=== PATIENT | female | born 1960 | race Caucasian/White ===

== ENCOUNTER 2017-12-12 17:55 | Inpatient (IN) ==
[~2017-12-12 17:55] MED LIST: Aminoglycoside Consult 1 EACH MC ONE
[2017-12-12] MEDS ORDERED: Albuterol 2.5 MG/3 ML NEBULIZER IH PRN (21:24)
[2017-12-12] MEDS ORDERED: Naloxone 0.4 MG/ML INJ IVP PRN (21:24)
[2017-12-12] MEDS ORDERED: Acetaminophen 325 MG TABLET PO PRN (21:24)
[2017-12-12] MEDS ORDERED: 0.9 % Sodium Chloride 1,000 ML IVC SCH (21:30)
--- NOTE | 2017-12-12 21:44 | Internal Med History&Physical ---
Date of Encounter: 12/12/17 Time of Encounter: 21:00 Internal Medicine - H&P: HPI Chief complaint: SOB; fever; cough Admitted From: Hospital to Hospital Transfer Plans for Post Hospital Care: Home History of present illness: Ms. Antoine is a 57 year old female who presents in transfer from [facility] ER in [facility]. She was in [place] today visiting her auto painter helper and she was referred emergently to the ER due to her dyspnea, coughing, and hypoxemia. Due to her opiate addiction, she was started on Suboxone and was having a one-week follow-up today. Her auto painter helper noted her respiratory distress and recommended ER transfer right away. She was therefore seen in the ER there in [place] and was documented to have evidence of clinical pneumonia with sepsis and acute hypoxemic respiratory failure. She was stabilized and initiated on antibiotics. Due to the fact that she lives in [facility]), she requested transfer to [facility]. Arrangements were made to transfer patient to our facility, and she arrived here this evening. Upon my assessment of the patient, she appears to be in mild to moderate respiratory distress. She admits to coughing, shortness of breath, pleuritic type chest pain, fevers, and chills for last several days. She denies any vomiting or diarrhea. Appetite and fluid intake have been diminished. She denies any known ill contacts. She does have a history of underlying cirrhosis secondary to alcohol abuse. She states her last alcohol intake was roughly 4 years ago. Of note, she had an EGD less than 1 year ago here at [facility] which revealed no evidence of varices. She does have history of Jeffrey-en-Y gastric bypass as noted on EGD and per history. Past Med Surg Social Fam HX - Past Medical History Attestation: Yes The following information was validated with the patient. Source: patient, old records reviewed, other (transfer records) Medical history: arthritis, asthma, cirrhosis, COPD, hypertension Additional medical history: chronic pain, insomnia Psychiatric history: no psych history - Past Surgical History Surgical History: , herniorrhaphy Additional surgical history: gastric bypass - Social History Smoking Status: Current every day smoker Alcohol use: none Drug use: opiates, other (prescribed Suboxone now -- confirmed by [facility]) Current living situation: Home, With Family Activity Level: Independent ambulation Recent Out of Country Travel Within the Last 8 Weeks: No - Family History Mother Living Status: Hx Family Cancer: Yes Father Living Status: Hx Family Cancer: Yes Internal Medicine - H&P: Meds Ipratropium/Albuterol Neb [Duoneb] 3 ml IH Q6HR PRN 06/06/16 [History] Lisinopril [Zestril] 10 mg PO DAILY 06/06/16 [History] Loratadine [Claritin] 10 mg PO DAILY 06/06/16 [History] Albuterol Sulfate [Ventolin Hfa] 2 puff IH Q4H PRN 02/16/17 [History] Bumetanide [Bumex] 1 mg PO DAILY 02/16/17 [History] Ergocalciferol (VITAMIN D2) [Vitamin D2] 50,000 unit PO QWEEK 02/16/17 [History] Lactulose [Enulose] 10 gm PO TID 02/16/17 [History] Trazodone HCl 100 mg PO HS 02/16/17 [History] Spironolactone [Aldactone] 25 mg PO DAILY #14 tab 02/27/17 [Rx] Buprenorphine HCl/Naloxone HCl [Buprenorphin-Naloxon 8-2 mg Sl] 1 tab PO DAILY 12/12/17 [History] Fluticasone Propionate Nasal [Flonase] 50 mcg NS DAILY PRN 12/12/17 [History] 3 Allergy/AdvReac Type Severity Reaction Status Date / Time No Known Allergies Allergy Verified 06/06/16 11:48 - Constitutional Constitutional: chills, fever(s), no night sweats - EENT Eyes: no blurry vision, no change in vision Ears: no ear pain, no tinnitus Nose, mouth and throat: no nasal congestion, no sinus pressure, no sore throat - Cardiovascular Cardiovascular ROS IM: dyspnea, dyspnea on exertion, edema, no chest pain - Respiratory Respiratory: cough, dyspnea, dyspnea on exertion, wheezing, chest congestion, excessive phlegm production, change in phlegm color, no hemoptysis - Gastrointestinal Gastrointestinal: nausea, no abdominal pain, no diarrhea, no hematemesis, no hematochezia, no melena, no vomiting - Genitourinary Genitourinary: no dysuria, no flank pain, no hematuria - Musculoskeletal Musculoskeletal ROS IM: back pain, no arthralgias - Integumentary Integumentary IM: no rash, no jaundice - Neurological Neurological ROS: weakness, no dizziness, no focal weakness, no frequent falls, no headache(s) - Psychiatric Psychiatric: no anxiety, no depression - Endocrine Endocrine IM: no polydipsia, no polyuria - Hematologic/Lymphatic Hematologic/Lymphatic: no lymphadenopathy - Allergic/Immunologic Allergic/Immunologic: wheezing, no GI upset with certain foods - Constitutional General appearance: Present: cooperative, mild distress (coughing, respiratory distress -- mild), A&O X 3, pleasant, answers questions appropriately - Head Head exam: Present: atraumatic, normal inspection - Eye Eye exam: Present: EOMI, PERRL. Absent: scleral icterus Pupils: Present: normal accommodation - ENT ENT exam: Present: mucous membranes dry, normal exam, normal oropharynx - Neck Neck exam general surgery: Present: full ROM, supple. Absent: lymphadenopathy, tenderness, nuchal rigidity, thyromegaly - Respiratory Respiratory exam: Present: accessory muscle use, chest wall tenderness, rales ( both bases, L > R), respiratory distress, rhonchi, tachypnea. Absent: CTAB, wheezes - Cardiovascular Cardiovascular exam: Present: distant heart sounds, RRR, +S1, +S2, tachycardia ( HR 105). Absent: diastolic murmur, systolic murmur - GI/Abdominal GI/Abdominal exam: Present: normal bowel sounds, soft. Absent: guarding, hepatomegaly, mass, rebound, splenomegaly, tenderness - Extremities Exam Extremities exam: Present: full ROM, normal capillary refill, pedal edema (1+ non-pitting edema), warm, radial pulses palpable and symmetrical. Absent: calf tenderness, joint swelling - Back Exam Back exam: Present: normal inspection, tenderness (diffuse back/muscle aches) - Neurological Exam Neurological exam: Present: alert, CN II-XII intact, oriented X3, no focal deficits, strengths equal and symetr throughout - Psychiatric Psychiatric exam: Present: normal affect, normal mood - Skin Skin exam: Present: dry, warm. Absent: rash Internal Med - H&P Results - Labs Labs: I reviewed labs from the ER at [facility] and include the following: Sodium 125 Potassium 3.5 Chloride 89 CO2 25 Glucose 69 BUN 48 Creatinine 1.49 WBC 22 Hemoglobin 11.7 Hematocrit 35.0 Platelets 379 Segmented neutrophils 93% Bands 2% Lactic acid level I.4 CT chest report reveals moderate to large right pleural effusion, diffuse patchy infiltrates throughout the right upper and middle lobes, no pericardial effusion. Unfortunately, images were not sent with the transfer packet -- only paper report. - EKG Data -: EKG Interpreted by Myself EKG shows normal: sinus rhythm Rate: tachycardia - EKG Data Prior EKG available for review: no EKG comments: 12/12/17 22:42 Sinus Tachycardia with no acute changes - Assessment and plan (1) Pneumonia Current Visit: Yes Status: Acute Assessment and plan: 1. Patient received Rocephin and Zithromax at ER in [place]. 2. Will Add Vancomcyin now and continue the other tomorrow. 3. Oxygen, aerosols, and steroids for respiratory support. 4. Blood cultures ordered. 5. Will try to obtain sputum culture. 6. Will image here with PCXR and follow clinically. Qualifiers: Pneumonia type: due to unspecified organism Laterality: bilateral Lung location: unspecified part of lung Qualified Code(s): J18.9 - Pneumonia, unspecified organism (2) Sepsis Current Visit: Yes Status: Acute Assessment and plan: 1. Blood pressure is preserved and initial lactate is normal. 2. Will continue IVF, trend lactate, and obtain cultures as above. 3. Likely source is pneumonia. Qualifiers: Sepsis type: sepsis due to unspecified organism Qualified Code(s): A41.9 - Sepsis, unspecified organism (3) Acute kidney failure Current Visit: Yes Status: Acute Assessment and plan: 1. Hold diuretics. 2. IVF as above. 3. Monitor renal function, I/O. 4. Consult nephrology if renal function does not improve with above measures. Qualifiers: Acute renal failure type: unspecified Qualified Code(s): N17.9 - Acute kidney failure, unspecified (4) Cirrhosis Current Visit: Yes Status: Chronic Assessment and plan: 1. Patient follows with GI here. 2. Last EGD -- no varices. 3. Resume home meds when clinically appropriate. Qualifiers: Hepatic cirrhosis type: alcoholic cirrhosis Ascites presence: unspecified Qualified Code(s): K70.30 - Alcoholic cirrhosis of liver without ascites (5) Opiate addiction Current Visit: Yes Status: Acute Assessment and plan: 1. Patient currently on Suboxone and off other prescribed opiates. 2. [facility] report confirms recent Rx fill of Suboxone. 3. Resume home Suboxone once medication list verified. Qualifiers: Substance use status: in remission Qualified Code(s): F11.21 - Opioid dependence, in remission (6) DVT prophylaxis Current Visit: Yes Status: Acute Assessment and plan: 1. Heparin SQ.
[2017-12-12] MEDS ORDERED: *HR* LORazepam 2 MG/ML VIAL IVP PRN (21:59)
[2017-12-12] MEDS ORDERED: Vancomycin (wt based) 1,000 MG VIAL IVPB SCH (22:00)
[2017-12-12] MEDS: methylPREDNISolone 125 MG/2 ML VIAL IVP SCH (23:39)
[2017-12-12] MEDS: Ipratropium/Albuterol Neb 3 ML IH SCH (23:59)
[2017-12-13 01:19] LABS: Hematocrit 29.8 % (35.3-44.9); Hemoglobin 10.9 g/dL (11.5-15.4); Mean Corpuscular HGB Conc 36.6 g/dL (31.6-35.5); Mean Corpuscular Hemoglobin 34.4 pg (28.0-33.3); Mean Platelet Volume 9.4 fL (9.4-12.4); Platelet Count 316 K/mcL (140-400); Red Blood Count 3.17 M/mcL (3.82-4.97); Red Cell Distribution Width 15.5 % (11.5-14.5)
[2017-12-13 01:26] LABS: INR 1.4; Prothrombin Time 15.1 Seconds (9.4-12.1)
[2017-12-13 01:29] LABS: Activated Partial Thrombo Time 32.9 Seconds (26.0-36.0)
[2017-12-13 01:39] LABS: Albumin/Globulin Ratio 0.6 (1.1-2.2); Bilirubin,Total 0.6 mg/dL (0.3-1.0); Calcium 7.9 mg/dL (8.6-10.3); Globulin 3.2 g/dL (2.4-3.5); Magnesium 1.8 mg/dL (1.6-2.6); Potassium 4.1 mEq/L (3.5-5.1); Total Protein 5.2 g/dL (6.4-8.9)
[2017-12-13 01:43] LABS: Monocytes # 0.2 K/mcL (0.0-1.3); Neutrophils # 15.1 K/mcL (1.6-8.9); Platelet Estimate Normal (Normal)
[2017-12-13] MEDS: Ipratropium/Albuterol Neb 3 ML IH SCH ×6 (03:25→23:42)
[2017-12-13] MEDS: cefTRIAXone 2,000 MG in Water for inj. (sterile) 20 ML 20 ML IVP SCH (05:51)
[2017-12-13] MEDS: Azithromycin 500 MG in D5% in Water 250 ML IVPB SCH (05:51)
[2017-12-13] MEDS: *HR* Heparin 5,000 UNIT/ML VIAL SQ SCH ×2 (05:51→17:37)
[2017-12-13] MEDS: methylPREDNISolone 125 MG/2 ML VIAL IVP SCH ×4 (05:51→23:27)
[2017-12-13] MEDS: Vitamin B Complex/Vit C/Vit E 1 EACH TABLET PO SCH (09:26)
[2017-12-13] MEDS: Thiamine (B-1) 100 MG TABLET PO SCH (09:26)
[2017-12-13] MEDS: Folic Acid 1 MG TABLET PO SCH (09:26)
[2017-12-13] MEDS: (Buprenorphine Hcl/Naloxone Hcl [Buprenorphin-Naloxon) PO SCH (10:26)
--- NOTE | 2017-12-13 12:27 | Internal Med Progress Note ---
Date of Encounter: 12/13/17 Time of Encounter: 12:27 - Assessment and plan (1) Bacteremia due to Gram-positive bacteria Current Visit: Yes Status: Acute Assessment and plan: Per [facility], blood culture with GPC (likely strep) Repeat blood culture from here is pending Will continue Ceftriaxone and Azithromycin Repeat blood culture a/m (2) Pneumonia Current Visit: Yes Status: Acute Assessment and plan: Likely due tp strep, (as strep in blod culture) Continue Ceftriaxone and Azithromycin-Day 2 Continue O2 supplement CXR with pulm edema and or PNA Wean O2 as tolerated Send urinary Ag for legionella due to hyponatremia Qualifiers: Pneumonia type: due to group B Streptococcus Laterality: bilateral Lung location: unspecified part of lung Qualified Code(s): J15.3 - Pneumonia due to streptococcus, group B (3) Sepsis Current Visit: Yes Status: Acute Assessment and plan: Patient with tachycardia, leukocytosis, fever (none here, stated at referring facility), source is GPC bacteremia and PNA Continue antibiotics Repeat blood culture from here is pending Lactate is N Hemodynamically stable Qualifiers: Sepsis type: sepsis due to unspecified organism Qualified Code(s): A41.9 - Sepsis, unspecified organism (4) Acute kidney failure Current Visit: Yes Status: Acute Assessment and plan: Improving Discontinue IVF as patient has pedal edema as well as possible pulm edema Continue to monitor Resume bumex Avoid nephrotoxins Qualifiers: Acute renal failure type: unspecified Qualified Code(s): N17.9 - Acute kidney failure, unspecified (5) Cirrhosis Current Visit: Yes Status: Chronic Assessment and plan: Compensated No varices on EGD No ascites Does have bilateral pleural effusions Qualifiers: Hepatic cirrhosis type: alcoholic cirrhosis Ascites presence: unspecified Qualified Code(s): K70.30 - Alcoholic cirrhosis of liver without ascites (6) DVT prophylaxis Current Visit: Yes Status: Acute Assessment and plan: Continue Heparin SQ. (7) Opiate addiction Current Visit: Yes Status: Chronic Assessment and plan: Resume home dose of suboxone Qualifiers: Substance use status: in remission Qualified Code(s): F11.21 - Opioid dependence, in remission (8) CHF (congestive heart failure) Current Visit: Yes Status: Chronic Assessment and plan: hx of chronic CHFpEF. mild LVDD ECHO from 2017 noted Has trace pedal edema , she also has a hx of cirrhosis CXR shows pulm edema Resume home dose of bumex, continue to monitor Qualifiers: Heart failure type: diastolic Heart failure chronicity: chronic Qualified Code(s): I50.32 - Chronic diastolic (congestive) heart failure (9) Hyponatremia Current Visit: Yes Status: Acute Assessment and plan: Na 127, hypoosmolar REceived IVF boluses Continue to monitor - Time Spent With Patient Total time spent is greater than 50% in coordination of care (as documented) at patient's floor/unit and/or counseling patient: - Subjective Interval history: Seen and examined at the bedside 57 F with opiate dependence, alcoholic liver cirrhosis, COPD, CHFpEF She presented and is admitted for management of sepsis, secondary to PNA, MANAV, Strep bacteremia, acute hypoxic respiratory failure Received a call from Cinthya Garcia that the patient's blood cultures is growing GPC, strep.like She continues to have shortness of breath, she is afebrile She is also requiring 4L of O2, and is not on home O2 at home - Constitutional Vitals: Temp Pulse Resp BP Pulse Ox 97.7 F 102 16 136/84 94 12/13/17 11:00 12/13/17 11:00 12/13/17 11:28 12/13/17 11:00 12/13/17 11:28 General appearance: Present: cooperative, A&O X 3, pleasant, no acute distress, answers questions appropriately - Head Head exam: Present: atraumatic, normocephalic - Eye Eye exam: Present: PERRL, conjuntiva pink, sclera anicteric Pupils: Present: PERRL - Neck Neck exam general surgery: Present: supple, trachea midline. Absent: lymphadenopathy - Respiratory Respiratory exam: Present: rhonchi, tachypnea - Cardiovascular Cardiovascular exam: Present: RRR, +S1, +S2. Absent: diastolic murmur, gallop, rubs, systolic murmur - GI/Abdominal GI/Abdominal exam: Present: normal bowel sounds, soft, no peritoneal signs. Absent: distended, tenderness - Extremities Exam Extremities exam: Present: pedal edema (1+ piting pedal edema) - Neurological Exam Neurological exam: Present: alert, CN II-XII intact, oriented X3, no focal deficits. Absent: pronater drift, facial droop, speech deficit - Skin Skin exam: Present: dry, intact Internal Medicine: Result - Labs CBC & Chem 7: 12/13/17 01:07 12/13/17 01:07 Labs: Short CBC 12/13/17 Range/Units 01:07 WBC 16.2 H (4.3-11.1) K/mcL Hgb 10.9 L (11.5-15.4) g/dL Hct 29.8 L (35.3-44.9) % Plt Count 316 (140-400) K/mcL Neutrophils # 15.1 H (1.6-8.9) K/mcL BMP 12/13/17 01:07 Sodium 127 L Potassium 4.1 Chloride 96 L Carbon Dioxide 22 L BUN 49 H Creatinine 1.20 Glucose 93 Calcium 7.9 L Liver Function 12/13/17 Range/Units 01:07 Total Bilirubin 0.6 (0.3-1.0) mg/dL AST 23 (13-39) Units/L ALT 16 (7-52) Units/L Alkaline Phosphatase 147 H (34-104) Units/L Albumin 2.0 L (3.5-5.7) g/dL - ABG Interpretation ABG results: PT/INR, D-dimer PT 15.1 Seconds (9.4-12.1) H 12/13/17 01:07 - Impressions Impressions Chest X-Ray 12/12/17 21:34 IMPRESSION: Findings could represent pulmonary edema or multifocal pneumonia. Bilateral effusions, worse on the right. D/ / Cj Estrada MD / Cj Estrada MD Interpreting Provider: Cj Estrada MD Consult Discharge Plan - Plan Referrals: Junie Petersen, [employer] [Primary Care Provider] -
[2017-12-13] MEDS: traZODone 50 MG TABLET PO SCH (20:48)
[2017-12-14 00:56] LABS: Enterococcus by PCR Not Detected (Not Detect); Staphylococcus aureus by PCR Not Detected (Not Detect); blaKPC Carbapenem-Resist Gene Not Detected (Not Detect); mecA Methicillin-Resist Gene Not Detected (Not Detect); vanA/B Vancomycin-Resist Genes Not Detected (Not Detect)
[2017-12-14 00:57] LABS: Streptococcus by PCR ***DETECTED*** (Not Detect)
[2017-12-14 00:58] LABS: Acinetobacter baumannii by PCR Not Detected (Not Detect); Candida albicans by PCR Not Detected (Not Detect); Candida glabrata by PCR Not Detected (Not Detect); Candida krusei by PCR Not Detected (Not Detect); Candida parapsilosis by PCR Not Detected (Not Detect); Candida tropicalis by PCR Not Detected (Not Detect); Escherichia coli by PCR Not Detected (Not Detect); Klebsiella oxytoca by PCR Not Detected (Not Detect); Klebsiella pneumoniae by PCR Not Detected (Not Detect); Pseudomonas aeruginosa by PCR Not Detected (Not Detect); Serratia marcescens by PCR Not Detected (Not Detect); Streptococcus agalactiae(B)PCR Not Detected (Not Detect); Streptococcus pneumoniae PCR ***DETECTED*** (Not Detect); Streptococcus pyogenes (A) PCR Not Detected (Not Detect)
[2017-12-14] MEDS: Ipratropium/Albuterol Neb 3 ML IH SCH ×6 (03:54→23:48)
[2017-12-14 06:16] LABS: Basophils % 0.2 %; Hematocrit 29.7 % (35.3-44.9); Immature Granulocytes % 1.6 % (0-4); Lymphocytes # 0.6 K/mcL (0.6-4.6); Mean Corpuscular Hemoglobin 35.1 pg (28.0-33.3); Mean Corpuscular Volume 94.9 fL (83.0-100.0); Mean Platelet Volume 9.7 fL (9.4-12.4); Monocytes # 0.5 K/mcL (0.0-1.3); Monocytes % 2.9 %; Neutrophils # 14.6 K/mcL (1.6-8.9); Platelet Count 287 K/mcL (140-400); Red Blood Count 3.13 M/mcL (3.82-4.97); Red Cell Distribution Width 15.9 % (11.5-14.5); Segmented Neutrophils % 91.3 %
[2017-12-14] MEDS: Azithromycin 500 MG in D5% in Water 250 ML IVPB SCH (06:17)
[2017-12-14] MEDS: *HR* Heparin 5,000 UNIT/ML VIAL SQ SCH ×2 (06:17→17:09)
[2017-12-14] MEDS: cefTRIAXone 2,000 MG in Water for inj. (sterile) 20 ML 20 ML IVP SCH (06:18)
[2017-12-14] MEDS: methylPREDNISolone 125 MG/2 ML VIAL IVP SCH ×2 (06:18→12:51)
[2017-12-14 06:39] LABS: BUN/Creatinine Ratio 58 (6-26); Blood Urea Nitrogen 57 mg/dL (6-20); Calcium 8.7 mg/dL (8.6-10.3); Carbon Dioxide 22 mEq/L (23-29); Chloride 98 mEq/L (98-107); Glucose 136 mg/dL (70-105); Osmolality,Calculated 284 (280-300); Potassium 3.6 mEq/L (3.5-5.1); Sodium 128 mEq/L (136-145); eGFR For African Americans > 60 (> 60); eGFR For Non-African Americans 57 (> 60)
[2017-12-14 06:57] LABS: Platelet Estimate Normal (Normal)
[2017-12-14] MEDS ORDERED: Bumetanide 1 MG TABLET PO SCH (09:00)
[2017-12-14] MEDS: (Buprenorphine Hcl/Naloxone Hcl [Buprenorphin-Naloxon) PO SCH (09:21)
[2017-12-14] MEDS: Folic Acid 1 MG TABLET PO SCH (09:23)
[2017-12-14] MEDS: Thiamine (B-1) 100 MG TABLET PO SCH (09:23)
[2017-12-14] MEDS: Vitamin B Complex/Vit C/Vit E 1 EACH TABLET PO SCH (09:23)
--- NOTE | 2017-12-14 10:06 | Internal Med Progress Note ---
Date of Encounter: 12/14/17 Time of Encounter: 10:35 - Assessment and plan (1) Acute respiratory failure with hypoxia Current Visit: Yes Status: Acute Assessment and plan: Continue O2 supplement BiPAP this am (2) Bacteremia due to Gram-positive bacteria Current Visit: Yes Status: Acute Assessment and plan: Per [facility], blood culture with GPC (likely strep) Repeat blood culture from here iwith strep Pneumo Will continue Ceftriaxone 2g and Azithromycin-day 2 Repeat blood culture done 12/14 pending Follow final sensitivity (3) Pneumonia Current Visit: Yes Status: Acute Assessment and plan: Likely due tp strep, (as strep in blod culture) Continue Ceftriaxone and Azithromycin-Day 2 Continue O2 supplement CXR with pulm edema and or PNA Wean O2 as tolerated urine legionella negative Qualifiers: Pneumonia type: due to group B Streptococcus Laterality: bilateral Lung location: unspecified part of lung Qualified Code(s): J15.3 - Pneumonia due to streptococcus, group B (4) Sepsis Current Visit: Yes Status: Acute Assessment and plan: Patient with tachycardia, leukocytosis, fever (none here, stated at referring facility), source is GPC bacteremia and PNA Continue antibiotics Blood culture 12/13 with strep Blood culture 12/14 done, pending Lactate is N Hemodynamically stable Qualifiers: Sepsis type: sepsis due to unspecified organism Qualified Code(s): A41.9 - Sepsis, unspecified organism (5) Acute kidney failure Current Visit: Yes Status: Resolved Assessment and plan: Resolved Qualifiers: Acute renal failure type: unspecified Qualified Code(s): N17.9 - Acute kidney failure, unspecified (6) Cirrhosis Current Visit: Yes Status: Chronic Assessment and plan: Compensated No varices on EGD No ascites Does have bilateral pleural effusions Start lasix, IV Continue to monitor Qualifiers: Hepatic cirrhosis type: alcoholic cirrhosis Ascites presence: unspecified Qualified Code(s): K70.30 - Alcoholic cirrhosis of liver without ascites (7) DVT prophylaxis Current Visit: Yes Status: Acute Assessment and plan: Continue Heparin SQ. (8) Opiate addiction Current Visit: Yes Status: Chronic Assessment and plan: Resume home dose of suboxone Qualifiers: Substance use status: in remission Qualified Code(s): F11.21 - Opioid dependence, in remission (9) CHF (congestive heart failure) Current Visit: Yes Status: Chronic Assessment and plan: hx of chronic CHFpEF. mild LVDD ECHO from 2017 noted Has trace pedal edema , she also has a hx of cirrhosis CXR shows pulm edema Start n lasix 40mg IV Monitor chem Qualifiers: Heart failure type: diastolic Heart failure chronicity: chronic Qualified Code(s): I50.32 - Chronic diastolic (congestive) heart failure (10) Hyponatremia Current Visit: Yes Status: Acute Assessment and plan: Na 128, hypoosmolar REceived IVF boluses Continue to monitor - Time Spent With Patient Total time spent is greater than 50% in coordination of care (as documented) at patient's floor/unit and/or counseling patient: - Subjective Interval history: Seen and examined at the bedside 57 F with opiate dependence, alcoholic liver cirrhosis, COPD, CHFpEF She presented and is admitted for management of sepsis, secondary to PNA, MANAV, Strep bacteremia, acute hypoxic respiratory failure O2 requirement is higher today Patient also has diffuse crackles, worse than exam on 12/13 We chepe start on IV lasix and hold home dose of bumex Place on BIPAP to decrease work of breathing - Constitutional Vitals: Temp Pulse Resp BP Pulse Ox 98 F 99 18 140/91 93 12/14/17 07:23 12/14/17 07:23 12/14/17 07:36 12/14/17 07:23 12/14/17 07:36 General appearance: Present: cooperative, A&O X 3, pleasant, no acute distress, answers questions appropriately - Head Head exam: Present: atraumatic, normocephalic - Eye Eye exam: Present: PERRL, conjuntiva pink, sclera anicteric Pupils: Present: PERRL - Neck Neck exam general surgery: Present: supple, trachea midline. Absent: lymphadenopathy - Respiratory Respiratory exam: Present: rales, rhonchi, tachypnea - Cardiovascular Cardiovascular exam: Present: RRR, +S1, +S2. Absent: diastolic murmur, gallop, rubs, systolic murmur - GI/Abdominal GI/Abdominal exam: Present: normal bowel sounds, soft, no peritoneal signs. Absent: distended, tenderness - Extremities Exam Extremities exam: Present: pedal edema (piting pedal edema), warm, radial pulses palpable and symmetrical. Absent: calf tenderness, cyanotic - Neurological Exam Neurological exam: Present: alert, CN II-XII intact, oriented X3, no focal deficits. Absent: pronater drift, facial droop, speech deficit - Skin Skin exam: Present: dry, intact Internal Medicine: Result - Labs CBC & Chem 7: 12/14/17 05:57 12/14/17 05:57 Labs: Short CBC 12/14/17 Range/Units 05:57 WBC 16.0 H (4.3-11.1) K/mcL Hgb 11.0 L (11.5-15.4) g/dL Hct 29.7 L (35.3-44.9) % Plt Count 287 (140-400) K/mcL Neutrophils # 14.6 H (1.6-8.9) K/mcL BMP 12/14/17 05:57 Sodium 128 L Potassium 3.6 Chloride 98 Carbon Dioxide 22 L BUN 57 H Creatinine 0.99 Glucose 136 H Calcium 8.7 - ABG Interpretation ABG results: PT/INR, D-dimer PT 15.1 Seconds (9.4-12.1) H 12/13/17 01:07 Consult Discharge Plan - Plan Referrals: Junie Petersen, [employer] [Primary Care Provider] -
[2017-12-14] MEDS ORDERED: Furosemide 40 MG/4 ML VIAL IVP ONE (10:44)
[2017-12-14 12:07] LABS: ABG Base Excess 2 mEq/L (-2 to 3); ABG HCO3 28 mEq/L (21-27); ABG Oxygen Saturation 94 % (95-98); ABG PCO2 48 mmHg (35-45); ABG PH 7.38 pH Units (7.32-7.45); ABG PO2 74 mmHg (85-104); ABG TCO2 29 mEq/L (20-26)
[2017-12-14] MEDS ORDERED: 0.9 % Sodium Chloride 250 ML ONE (20:15)
[2017-12-14] MEDS ORDERED: Vancomycin 1,000 MG VIAL ONE (20:15)
[2017-12-15] MEDS: traZODone 50 MG TABLET PO SCH ×2 (03:53→21:25)
[2017-12-15] MEDS: Ipratropium/Albuterol Neb 3 ML IH SCH ×6 (04:29→23:45)
[2017-12-15 05:09] LABS: Basophils % 0.2 %; Hematocrit 28.4 % (35.3-44.9); Hemoglobin 10.2 g/dL (11.5-15.4); Immature Granulocytes % 1.7 % (0-4); Lymphocytes # 0.7 K/mcL (0.6-4.6); Lymphocytes % 5.2 %; Mean Corpuscular HGB Conc 35.9 g/dL (31.6-35.5); Mean Corpuscular Hemoglobin 34.6 pg (28.0-33.3); Mean Corpuscular Volume 96.3 fL (83.0-100.0); Mean Platelet Volume 10.1 fL (9.4-12.4); Monocytes # 0.6 K/mcL (0.0-1.3); Monocytes % 4.2 %; Neutrophils # 12.6 K/mcL (1.6-8.9); Platelet Count 294 K/mcL (140-400); Red Blood Count 2.95 M/mcL (3.82-4.97); Red Cell Distribution Width 16.4 % (11.5-14.5); Segmented Neutrophils % 88.7 %
[2017-12-15 05:32] LABS: BUN/Creatinine Ratio 68 (6-26); Blood Urea Nitrogen 54 mg/dL (6-20); Calcium 8.7 mg/dL (8.6-10.3); Carbon Dioxide 26 mEq/L (23-29); Chloride 98 mEq/L (98-107); Glucose 118 mg/dL (70-105); Osmolality,Calculated 288 (280-300); Platelet Estimate Normal (Normal); Potassium 3.9 mEq/L (3.5-5.1); Sodium 131 mEq/L (136-145); eGFR For African Americans > 60 (> 60); eGFR For Non-African Americans > 60 (> 60)
[2017-12-15] MEDS: *HR* Heparin 5,000 UNIT/ML VIAL SQ SCH ×2 (06:21→18:01)
[2017-12-15] MEDS: Azithromycin 500 MG in D5% in Water 250 ML IVPB SCH (08:35)
[2017-12-15] MEDS: Furosemide 40 MG/4 ML VIAL IVP SCH (08:35)
[2017-12-15] MEDS: cefTRIAXone 2,000 MG in Water for inj. (sterile) 20 ML 20 ML IVP SCH (08:36)
[2017-12-15] MEDS: predniSONE 20 MG TABLET PO SCH (08:37)
[2017-12-15] MEDS: Folic Acid 1 MG TABLET PO SCH (08:37)
[2017-12-15] MEDS: Thiamine (B-1) 100 MG TABLET PO SCH (08:37)
[2017-12-15] MEDS: Vitamin B Complex/Vit C/Vit E 1 EACH TABLET PO SCH (08:37)
--- NOTE | 2017-12-15 13:13 | Internal Med Progress Note ---
Date of Encounter: 12/15/17 Time of Encounter: 13:10 - Assessment and plan (1) Acute respiratory failure with hypoxia Current Visit: Yes Status: Acute Assessment and plan: Secondary to multifocal pneumonia and fluid overload. BIPAP as needed Rocephin azithromycin, follow-up blood cultures Judicious diuresis with 40 mg IV Lasix daily. Daily BMP monitoring. Continue O2 supplement, wean as tolerated. (2) Sepsis Current Visit: Yes Status: Acute Assessment and plan: Patient with tachycardia, leukocytosis, fever (none here, stated at referring facility), source is GPC bacteremia and PNA Blood culture 12/13 with strep Blood culture 12/14 done, pending Lactate is N Hemodynamically stable Continue Rocephin/Azithromycin Qualifiers: Sepsis type: sepsis due to unspecified organism Qualified Code(s): A41.9 - Sepsis, unspecified organism (3) Bacteremia due to Gram-positive bacteria Current Visit: Yes Status: Acute Assessment and plan: Per [facility], blood culture with GPC (likely strep), as seen on imaging. Repeat blood culture from here [facility] strep Pneumo - Will continue Ceftriaxone 2g and Azithromycin-day 2 - Repeat blood cultures done 12/14 pending (4) Pneumonia Current Visit: Yes Status: Acute Assessment and plan: Likely due tp strep, (Strep in blood culture) Continue Ceftriaxone and Azithromycin Continue O2 supplement CXR with pulm edema and or PNA Wean O2 as tolerated urine legionella negative Check procalcitonin Qualifiers: Pneumonia type: due to group B Streptococcus Laterality: bilateral Lung location: unspecified part of lung Qualified Code(s): J15.3 - Pneumonia due to streptococcus, group B (5) Acute kidney failure Current Visit: Yes Status: Resolved Assessment and plan: Resolved Qualifiers: Acute renal failure type: unspecified Qualified Code(s): N17.9 - Acute kidney failure, unspecified (6) Cirrhosis Current Visit: Yes Status: Chronic Assessment and plan: Compensated No varices on EGD No ascites Does have bilateral pleural effusions Continue to monitor Continue IV Lasix for fluid overload. Qualifiers: Hepatic cirrhosis type: alcoholic cirrhosis Ascites presence: unspecified Qualified Code(s): K70.30 - Alcoholic cirrhosis of liver without ascites (7) DVT prophylaxis Current Visit: Yes Status: Acute Assessment and plan: Heparin SQ. (8) Opiate addiction Current Visit: Yes Status: Chronic Assessment and plan: Resume home dose of suboxone Qualifiers: Substance use status: in remission Qualified Code(s): F11.21 - Opioid dependence, in remission (9) CHF (congestive heart failure) Current Visit: Yes Status: Chronic Assessment and plan: hx of chronic CHFpEF. mild LVDD ECHO from 2017 noted Has trace pedal edema , she also has a hx of cirrhosis CXR shows pulm edema Continue lasix 40mg IV Monitor I/Os Qualifiers: Heart failure type: diastolic Heart failure chronicity: chronic Qualified Code(s): I50.32 - Chronic diastolic (congestive) heart failure (10) Hyponatremia Current Visit: Yes Status: Acute Assessment and plan: Na 128, hypoosmolar Received IVF boluses initially Continue to monitor Currently needing Lasix, is being given with careful monitoring of serum sodium levels. - Time Spent With Patient Total time spent is greater than 50% in coordination of care (as documented) at patient's floor/unit and/or counseling patient: - Subjective Interval history: No complaints, no acute events. Has shortness of breath but she states she is doing much better. - Constitutional Vitals: Temp Pulse Resp BP Pulse Ox 97.9 F 106 24 146/88 97 12/15/17 11:54 12/15/17 11:54 12/15/17 11:54 12/15/17 11:54 12/15/17 11:54 General appearance: Present: cooperative, A&O X 3, pleasant, no acute distress, answers questions appropriately Exam: - Head Head exam: Present: atraumatic, normocephalic - Eye Eye exam: Present: PERRL, conjuntiva pink, sclera anicteric Pupils: Present: PERRL - Neck Neck exam general surgery: Present: supple, trachea midline. Absent: lymphadenopathy - Respiratory Respiratory exam: Present: rales, rhonchi, tachypnea - Cardiovascular Cardiovascular exam: Present: RRR, +S1, +S2. Absent: diastolic murmur, gallop, rubs, systolic murmur - GI/Abdominal GI/Abdominal exam: Present: normal bowel sounds, soft, no peritoneal signs. Absent: distended, tenderness - Extremities Exam Extremities exam: Present: pedal edema (piting pedal edema), warm, radial pulses palpable and symmetrical. Absent: calf tenderness, cyanotic - Neurological Exam Neurological exam: Present: alert, CN II-XII intact, oriented X3, no focal deficits. Absent: pronater drift, facial droop, speech deficit - Skin Skin exam: Present: dry, intact Internal Medicine: Result - Labs CBC & Chem 7: 12/15/17 04:26 12/15/17 04:26 Labs: Short CBC 12/15/17 Range/Units 04:26 WBC 14.2 H (4.3-11.1) K/mcL Hgb 10.2 L (11.5-15.4) g/dL Hct 28.4 L (35.3-44.9) % Plt Count 294 (140-400) K/mcL Neutrophils # 12.6 H (1.6-8.9) K/mcL BMP 12/15/17 04:26 Sodium 131 L Potassium 3.9 Chloride 98 Carbon Dioxide 26 BUN 54 H Creatinine 0.80 Glucose 118 H Calcium 8.7 - ABG Interpretation ABG results: ABG ABG pH 7.38 pH Units (7.32-7.45) 12/14/17 12:02 ABG pCO2 48 mmHg (35-45) H 12/14/17 12:02 ABG pO2 74 mmHg (85-104) L 12/14/17 12:02 ABG O2 Saturation 94 % (95-98) L 12/14/17 12:02 PT/INR, D-dimer PT 15.1 Seconds (9.4-12.1) H 12/13/17 01:07 Consult Discharge Plan - Plan Referrals: Junie Petersen, SURVEILLANCE DIRECTOR [Primary Care Provider] -
[2017-12-15] MEDS: (Buprenorphine Hcl/Naloxone Hcl [Buprenorphin-Naloxon) PO SCH (18:00)
[2017-12-15] MEDS ORDERED: Vancomycin 1,000 MG VIAL ONE (21:36)
[2017-12-15] MEDS ORDERED: 0.9 % Sodium Chloride 250 ML ONE (21:36)
[2017-12-16] MEDS: Ipratropium/Albuterol Neb 3 ML IH SCH ×5 (04:35→20:24)
[2017-12-16 05:45] LABS: Basophils # 0.1 K/mcL (0.0-0.2); Basophils % 0.2 %; Eosinophils % 0.1 %; Hematocrit 31.9 % (35.3-44.9); Hemoglobin 11.4 g/dL (11.5-15.4); Immature Granulocytes % 3.6 % (0-4); Immature Platelets 6.7 % (1.1-6.1); Lymphocytes # 1.8 K/mcL (0.6-4.6); Lymphocytes % 8.7 %; Mean Corpuscular HGB Conc 35.7 g/dL (31.6-35.5); Mean Corpuscular Hemoglobin 34.8 pg (28.0-33.3); Mean Corpuscular Volume 97.3 fL (83.0-100.0); Mean Platelet Volume 10.3 fL (9.4-12.4); Monocytes # 0.3 K/mcL (0.0-1.3); Monocytes % 1.5 %; Neutrophils # 17.4 K/mcL (1.6-8.9); Nucleated Red Blood Cells 0.1 /100 WBC (0); Platelet Count 407 K/mcL (140-400); Red Blood Count 3.28 M/mcL (3.82-4.97); Red Cell Distribution Width 16.6 % (11.5-14.5); Segmented Neutrophils % 85.9 %
[2017-12-16 06:05] LABS: BUN/Creatinine Ratio 74 (6-26); Blood Urea Nitrogen 40 mg/dL (6-20); Calcium 9.2 mg/dL (8.6-10.3); Carbon Dioxide 30 mEq/L (23-29); Chloride 97 mEq/L (98-107); Glucose 84 mg/dL (70-105); Osmolality,Calculated 289 (280-300); Potassium 3.4 mEq/L (3.5-5.1); Sodium 135 mEq/L (136-145); eGFR For African Americans > 60 (> 60); eGFR For Non-African Americans > 60 (> 60)
[2017-12-16] MEDS: *HR* Heparin 5,000 UNIT/ML VIAL SQ SCH ×2 (06:27→18:48)
[2017-12-16] MEDS: Folic Acid 1 MG TABLET PO SCH (08:50)
[2017-12-16] MEDS: Thiamine (B-1) 100 MG TABLET PO SCH (08:50)
[2017-12-16] MEDS: predniSONE 20 MG TABLET PO SCH (08:50)
[2017-12-16] MEDS: Vitamin B Complex/Vit C/Vit E 1 EACH TABLET PO SCH (08:50)
[2017-12-16] MEDS: Furosemide 40 MG/4 ML VIAL IVP SCH ×2 (08:50→18:48)
[2017-12-16] MEDS: Azithromycin 500 MG in D5% in Water 250 ML IVPB SCH (08:52)
[2017-12-16] MEDS ORDERED: cefTRIAXone 2,000 MG in Water for inj. (sterile) 20 ML 20 ML IVP SCH (09:00)
--- NOTE | 2017-12-16 12:26 | Internal Med Progress Note ---
Date of Encounter: 12/16/17 Time of Encounter: 12:23 - Assessment and plan (1) Acute respiratory failure with hypoxia Current Visit: Yes Status: Acute Assessment and plan: Secondary to multifocal pneumonia and fluid overload. BIPAP as needed Judicious diuresis with 40 mg IV Lasix daily. Daily BMP monitoring. Continue O2 supplement, wean as tolerated. Strep pneumonia with intermediate resistance to Rocephin. Change to Levaquin (2) Sepsis Current Visit: Yes Status: Acute Assessment and plan: Patient with tachycardia, leukocytosis, fever (none here, stated at referring facility), source is GPC bacteremia and PNA Blood culture 12/13 with strep pneumonia. Levaquin started based on sensitivities. Blood culture 12/14 done, pending Lactate is normal Hemodynamically stable Leukocytosis worsening. - Consider Prednisone side effect - Also Rocephin inadequate based on sensitivities - Change to Levaquin and monitor closely Qualifiers: Sepsis type: sepsis due to unspecified organism Qualified Code(s): A41.9 - Sepsis, unspecified organism (3) Bacteremia due to Gram-positive bacteria Current Visit: Yes Status: Acute Assessment and plan: Per [facility], blood culture with GPC (likely strep), as seen on imaging. Repeat blood culture from here i with strep Pneumo - Changed to Levaquin today because of sensitivities - Repeat blood cultures done 12/14 pending (4) Pneumonia Current Visit: Yes Status: Acute Assessment and plan: Likely due tp strep, (Strep in blood culture), seen on imaging as well. Continue O2 supplement Wean O2 as tolerated urine legionella negative Continue Levaquin Procalcitonin pending, recheck in 72 hours for therapy monitoring. Qualifiers: Pneumonia type: due to group B Streptococcus Laterality: bilateral Lung location: unspecified part of lung Qualified Code(s): J15.3 - Pneumonia due to streptococcus, group B (5) Acute kidney failure Current Visit: Yes Status: Resolved Assessment and plan: Resolved Qualifiers: Acute renal failure type: unspecified Qualified Code(s): N17.9 - Acute kidney failure, unspecified (6) Cirrhosis Current Visit: Yes Status: Chronic Assessment and plan: Compensated No varices on EGD No ascites Does have bilateral pleural effusions Continue to monitor Continue IV Lasix for fluid overload. Qualifiers: Hepatic cirrhosis type: alcoholic cirrhosis Ascites presence: unspecified Qualified Code(s): K70.30 - Alcoholic cirrhosis of liver without ascites (7) DVT prophylaxis Current Visit: Yes Status: Acute Assessment and plan: Heparin SQ. (8) Opiate addiction Current Visit: Yes Status: Chronic Assessment and plan: Resume home dose of suboxone Qualifiers: Substance use status: in remission Qualified Code(s): F11.21 - Opioid dependence, in remission (9) CHF (congestive heart failure) Current Visit: Yes Status: Chronic Assessment and plan: hx of chronic CHFpEF. mild LVDD ECHO from 2017 noted Has trace pedal edema , she also has a hx of cirrhosis CXR shows pulm edema Continue lasix 40mg IV Monitor I/Os Bipap for fluid overload as well. Qualifiers: Heart failure type: diastolic Heart failure chronicity: chronic Qualified Code(s): I50.32 - Chronic diastolic (congestive) heart failure (10) Hyponatremia Current Visit: Yes Status: Acute Assessment and plan: Na 128, hypoosmolar Received IVF boluses initially Continue to monitor Currently needing Lasix, is being given with careful monitoring of serum sodium levels. - Time Spent With Patient Total time spent is greater than 50% in coordination of care (as documented) at patient's floor/unit and/or counseling patient: - Subjective Interval history: No complaints, no acute events. Has shortness of breath is using bipap regularly to aid with fluid overload. - Constitutional Vitals: Temp Pulse Resp BP Pulse Ox 98.5 F 99 16 142/86 100 12/16/17 11:21 12/16/17 11:21 12/16/17 11:21 12/16/17 11:21 12/16/17 11:21 General appearance: Present: cooperative, A&O X 3, pleasant, no acute distress, answers questions appropriately Exam: on BIPAP - Head Head exam: Present: atraumatic, normocephalic - Eye Eye exam: Present: PERRL, conjuntiva pink, sclera anicteric Pupils: Present: PERRL - Neck Neck exam general surgery: Present: supple, trachea midline. Absent: lymphadenopathy - Respiratory Respiratory exam: Present: rales, rhonchi - Cardiovascular Cardiovascular exam: Present: RRR, +S1, +S2. Absent: diastolic murmur, gallop, rubs, systolic murmur - GI/Abdominal GI/Abdominal exam: Present: normal bowel sounds, soft, no peritoneal signs. Absent: distended, tenderness - Extremities Exam Extremities exam: Present: pedal edema (piting pedal edema), warm, radial pulses palpable and symmetrical. Absent: calf tenderness, cyanotic - Neurological Exam Neurological exam: Present: alert, CN II-XII intact, oriented X3, no focal deficits. Absent: pronater drift, facial droop, speech deficit - Skin Skin exam: Present: dry, intact Internal Medicine: Result - Labs CBC & Chem 7: 12/16/17 05:03 12/16/17 05:03 Labs: Short CBC 12/16/17 Range/Units 05:03 WBC 20.3 H (4.3-11.1) K/mcL Hgb 11.4 L (11.5-15.4) g/dL Hct 31.9 L (35.3-44.9) % Plt Count 407 H (140-400) K/mcL Neutrophils # 17.4 H (1.6-8.9) K/mcL BMP 12/16/17 05:03 Sodium 135 L Potassium 3.4 L Chloride 97 L Carbon Dioxide 30 H BUN 40 H Creatinine 0.54 L Glucose 84 Calcium 9.2 - ABG Interpretation ABG results: ABG ABG pH 7.38 pH Units (7.32-7.45) 12/14/17 12:02 ABG pCO2 48 mmHg (35-45) H 12/14/17 12:02 ABG pO2 74 mmHg (85-104) L 12/14/17 12:02 ABG O2 Saturation 94 % (95-98) L 12/14/17 12:02 PT/INR, D-dimer PT 15.1 Seconds (9.4-12.1) H 12/13/17 01:07 Consult Discharge Plan - Plan Referrals: Junie Petersen, SECURITIES BROKER [Primary Care Provider] -
[2017-12-16] MEDS: Levofloxacin 750 MG/150 ML 750 MG/150 ML BAG IVPB SCH (12:43)
[2017-12-16] MEDS: (Buprenorphine Hcl/Naloxone Hcl [Buprenorphin-Naloxon) PO SCH ×2 (16:58→19:23)
[2017-12-16] MEDS ORDERED: Furosemide 40 MG TABLET PO SCH (17:00)
[2017-12-16] MEDS: traZODone 50 MG TABLET PO SCH (21:53)
[2017-12-17] MEDS: Ipratropium/Albuterol Neb 3 ML IH SCH ×7 (00:07→23:18)
[2017-12-17] MEDS: *HR* Heparin 5,000 UNIT/ML VIAL SQ SCH ×2 (05:19→18:02)
[2017-12-17 05:39] LABS: Basophils % 0.2 %; Eosinophils # 0.1 K/mcL (0.0-0.6); Eosinophils % 0.4 %; Hematocrit 27.5 % (35.3-44.9); Hemoglobin 10.1 g/dL (11.5-15.4); Lymphocytes # 1.5 K/mcL (0.6-4.6); Lymphocytes % 9.1 %; Mean Corpuscular HGB Conc 36.7 g/dL (31.6-35.5); Mean Corpuscular Hemoglobin 36.3 pg (28.0-33.3); Mean Corpuscular Volume 98.9 fL (83.0-100.0); Mean Platelet Volume 10.6 fL (9.4-12.4); Monocytes # 0.3 K/mcL (0.0-1.3); Platelet Count 319 K/mcL (140-400); Red Blood Count 2.78 M/mcL (3.82-4.97); Red Cell Distribution Width 16.5 % (11.5-14.5); Segmented Neutrophils % 86.3 %
[2017-12-17 05:53] LABS: BUN/Creatinine Ratio 59 (6-26); Blood Urea Nitrogen 26 mg/dL (6-20); Calcium 8.7 mg/dL (8.6-10.3); Carbon Dioxide 36 mEq/L (23-29); Chloride 97 mEq/L (98-107); Glucose 80 mg/dL (70-105); Osmolality,Calculated 286 (280-300); Potassium 4.3 mEq/L (3.5-5.1); Sodium 136 mEq/L (136-145); eGFR For African Americans > 60 (> 60); eGFR For Non-African Americans > 60 (> 60)
[2017-12-17] MEDS: Thiamine (B-1) 100 MG TABLET PO SCH (08:38)
[2017-12-17] MEDS: Furosemide 40 MG/4 ML VIAL IVP SCH ×2 (08:39→18:02)
[2017-12-17] MEDS: predniSONE 20 MG TABLET PO SCH (08:39)
[2017-12-17] MEDS: Vitamin B Complex/Vit C/Vit E 1 EACH TABLET PO SCH (08:39)
[2017-12-17] MEDS: Azithromycin 500 MG in D5% in Water 250 ML IVPB SCH (08:39)
[2017-12-17] MEDS: Folic Acid 1 MG TABLET PO SCH (08:39)
[2017-12-17] MEDS: Levofloxacin 750 MG/150 ML 750 MG/150 ML BAG IVPB SCH (08:41)
--- NOTE | 2017-12-17 13:25 | Internal Med Progress Note ---
Date of Encounter: 12/17/17 Time of Encounter: 13:23 - Assessment and plan (1) Acute respiratory failure with hypoxia Current Visit: Yes Status: Acute Assessment and plan: Secondary to multifocal pneumonia and fluid overload. BIPAP as needed Judicious diuresis with 40 mg IV Lasix daily. Daily BMP monitoring. Continue O2 supplement, wean as tolerated. Strep pneumonia with intermediate resistance to Rocephin. Change to Levaquin (2) Sepsis Current Visit: Yes Status: Acute Assessment and plan: Patient with tachycardia, leukocytosis, fever (none here, stated at referring facility), source is GPC bacteremia and PNA Blood culture 12/13 with strep pneumonia. Levaquin started based on sensitivities. Blood culture 12/14 done, no growth to date. Lactate is normal Hemodynamically stable Leukocytosis improved - Continue Levaquin Qualifiers: Sepsis type: sepsis due to unspecified organism Qualified Code(s): A41.9 - Sepsis, unspecified organism (3) Bacteremia due to Gram-positive bacteria Current Visit: Yes Status: Acute Assessment and plan: Per [facility], blood culture with GPC (likely strep), as seen on imaging. Repeat blood culture from here i with strep Pneumo - Changed to Levaquin today because of sensitivities - Repeat blood cultures done 12/14 currently no growth to date (4) Pneumonia Current Visit: Yes Status: Acute Assessment and plan: Likely due tp strep, (Strep in blood culture), seen on imaging as well. Continue O2 supplement Wean O2 as tolerated urine legionella negative Continue Levaquin - Based on sensitivity results (Rocephin was discontinued) Procalcitonin pending, recheck in 72 hours for therapy monitoring. Qualifiers: Pneumonia type: due to group B Streptococcus Laterality: bilateral Lung location: unspecified part of lung Qualified Code(s): J15.3 - Pneumonia due to streptococcus, group B (5) Acute kidney failure Current Visit: Yes Status: Resolved Assessment and plan: Resolved Qualifiers: Acute renal failure type: unspecified Qualified Code(s): N17.9 - Acute kidney failure, unspecified (6) Cirrhosis Current Visit: Yes Status: Chronic Assessment and plan: Compensated No varices on EGD No ascites Does have bilateral pleural effusions Continue to monitor Continue IV Lasix for fluid overload. Qualifiers: Hepatic cirrhosis type: alcoholic cirrhosis Ascites presence: unspecified Qualified Code(s): K70.30 - Alcoholic cirrhosis of liver without ascites (7) Opiate addiction Current Visit: Yes Status: Chronic Assessment and plan: Resume home dose of suboxone Qualifiers: Substance use status: in remission Qualified Code(s): F11.21 - Opioid dependence, in remission (8) CHF (congestive heart failure) Current Visit: Yes Status: Chronic Assessment and plan: hx of chronic CHFpEF. mild LVDD ECHO from 2017 noted Has trace pedal edema , she also has a hx of cirrhosis CXR shows pulm edema Monitor I/Os Bipap for fluid overload as well. Increased Lasix to 40 mg IV BID Qualifiers: Heart failure type: diastolic Heart failure chronicity: chronic Qualified Code(s): I50.32 - Chronic diastolic (congestive) heart failure (9) Hyponatremia Current Visit: Yes Status: Acute Assessment and plan: Na 128, hypoosmolar Received IVF boluses initially Continue to monitor Currently needing Lasix, is being given with careful monitoring of serum sodium levels. (10) DVT prophylaxis Current Visit: Yes Status: Acute Assessment and plan: Heparin SQ. - Time Spent With Patient Total time spent is greater than 50% in coordination of care (as documented) at patient's floor/unit and/or counseling patient: - Subjective Interval history: No complaints, no acute events. She needs bipap on and off today, overall not as much as yesterday but still SOB. - Constitutional Vitals: Temp Pulse Resp BP Pulse Ox 98.4 F 98 18 144/85 91 12/17/17 11:04 12/17/17 11:04 12/17/17 11:16 12/17/17 11:04 12/17/17 11:16 General appearance: Present: cooperative, A&O X 3, pleasant, no acute distress, answers questions appropriately Exam: - Head Head exam: Present: atraumatic, normocephalic - Eye Eye exam: Present: PERRL, conjuntiva pink, sclera anicteric Pupils: Present: PERRL - Neck Neck exam general surgery: Present: supple, trachea midline. Absent: lymphadenopathy - Respiratory Respiratory exam: Present: rales, rhonchi, tachypnea - Cardiovascular Cardiovascular exam: Present: RRR, +S1, +S2. Absent: diastolic murmur, gallop, rubs, systolic murmur - GI/Abdominal GI/Abdominal exam: Present: normal bowel sounds, soft, no peritoneal signs. Absent: distended, tenderness - Extremities Exam Extremities exam: Present: pedal edema (piting pedal edema), warm, radial pulses palpable and symmetrical. Absent: calf tenderness, cyanotic - Neurological Exam Neurological exam: Present: alert, CN II-XII intact, oriented X3, no focal deficits. Absent: pronater drift, facial droop, speech deficit - Skin Skin exam: Present: dry, intact Internal Medicine: Result - Labs CBC & Chem 7: 12/17/17 04:52 12/17/17 04:52 Labs: Short CBC 12/17/17 Range/Units 04:52 WBC 16.2 H (4.3-11.1) K/mcL Hgb 10.1 L (11.5-15.4) g/dL Hct 27.5 L (35.3-44.9) % Plt Count 319 (140-400) K/mcL Neutrophils # 14.0 H (1.6-8.9) K/mcL BMP 12/17/17 04:52 Sodium 136 Potassium 4.3 D Chloride 97 L Carbon Dioxide 36 H BUN 26 H Creatinine 0.44 L Glucose 80 Calcium 8.7 - ABG Interpretation ABG results: ABG ABG pH 7.38 pH Units (7.32-7.45) 12/14/17 12:02 ABG pCO2 48 mmHg (35-45) H 12/14/17 12:02 ABG pO2 74 mmHg (85-104) L 12/14/17 12:02 ABG O2 Saturation 94 % (95-98) L 12/14/17 12:02 PT/INR, D-dimer PT 15.1 Seconds (9.4-12.1) H 12/13/17 01:07 Consult Discharge Plan - Plan Referrals: Junie Petersen, PA[employer]ATION DEPARTMENT MANAGER [Primary Care Provider] -
[2017-12-17] MEDS: (Buprenorphine Hcl/Naloxone Hcl [Buprenorphin-Naloxon) PO SCH (18:25)
[2017-12-17] MEDS: traZODone 50 MG TABLET PO SCH (21:55)
[2017-12-18] MEDS: Ipratropium/Albuterol Neb 3 ML IH SCH ×6 (04:07→23:26)
[2017-12-18 04:45] LABS: Basophils % 0.1 %; Eosinophils # 0.1 K/mcL (0.0-0.6); Eosinophils % 0.5 %; Hematocrit 26.5 % (35.3-44.9); Hemoglobin 9.7 g/dL (11.5-15.4); Immature Granulocytes % 2.1 % (0-4); Lymphocytes # 1.5 K/mcL (0.6-4.6); Lymphocytes % 10.4 %; Mean Corpuscular HGB Conc 36.6 g/dL (31.6-35.5); Mean Corpuscular Hemoglobin 35.8 pg (28.0-33.3); Mean Corpuscular Volume 97.8 fL (83.0-100.0); Mean Platelet Volume 11.4 fL (9.4-12.4); Monocytes # 0.4 K/mcL (0.0-1.3); Monocytes % 2.7 %; Platelet Count 297 K/mcL (140-400); Red Blood Count 2.71 M/mcL (3.82-4.97); Red Cell Distribution Width 16.8 % (11.5-14.5); Segmented Neutrophils % 84.2 %
[2017-12-18 04:52] LABS: BUN/Creatinine Ratio 56 (6-26); Blood Urea Nitrogen 22 mg/dL (6-20); Calcium 8.5 mg/dL (8.6-10.3); Carbon Dioxide 37 mEq/L (23-29); Chloride 94 mEq/L (98-107); Glucose 81 mg/dL (70-105); Osmolality,Calculated 284 (280-300); Potassium 3.5 mEq/L (3.5-5.1); Sodium 136 mEq/L (136-145); eGFR For African Americans > 60 (> 60); eGFR For Non-African Americans > 60 (> 60)
[2017-12-18] MEDS: *HR* Heparin 5,000 UNIT/ML VIAL SQ SCH ×2 (06:25→17:49)
[2017-12-18] MEDS: predniSONE 20 MG TABLET PO SCH (09:50)
[2017-12-18] MEDS: Furosemide 40 MG/4 ML VIAL IVP SCH ×2 (09:50→17:49)
[2017-12-18] MEDS: Levofloxacin 750 MG/150 ML 750 MG/150 ML BAG IVPB SCH (09:51)
[2017-12-18] MEDS: Folic Acid 1 MG TABLET PO SCH (09:51)
[2017-12-18] MEDS: Thiamine (B-1) 100 MG TABLET PO SCH (09:51)
[2017-12-18] MEDS: Vitamin B Complex/Vit C/Vit E 1 EACH TABLET PO SCH (09:51)
[2017-12-18] MEDS ORDERED: Isovue-370 500 ML INFUS..BTL IV ONE (12:57)
--- NOTE | 2017-12-18 15:37 | Internal Med Progress Note ---
<Jayme Collado - Last Filed: 12/18/17 16:15> Date of Encounter: 12/18/17 Time of Encounter: 09:30 - Assessment and plan (1) Pneumonia Current Visit: Yes Status: Acute Assessment and plan: Continues to require 5L via nasal cannula, desaturates with mobility; ordering CTA 12/18 to assess for PE or possible empyema. Continue O2 supplement Wean O2 as tolerated Urine legionella negative Continue Levaquin - Based on sensitivity results (Rocephin was discontinued) Rechecking Procalcitonin, initial 5.58 Qualifiers: Pneumonia type: due to group B Streptococcus Laterality: bilateral Lung location: unspecified part of lung Qualified Code(s): J15.3 - Pneumonia due to streptococcus, group B (2) Sepsis Current Visit: Yes Status: Acute Assessment and plan: Leukocytosis improved, NSR, afebrile - Continue Levaquin Blood culture 12/13 with strep pneumonia. Levaquin started based on sensitivities. Blood culture 12/14 done, no growth to date. Lactate is normal Hemodynamically stable Qualifiers: Sepsis type: sepsis due to unspecified organism Qualified Code(s): A41.9 - Sepsis, unspecified organism (3) Acute kidney failure Current Visit: Yes Status: Resolved Assessment and plan: Resolved Qualifiers: Acute renal failure type: unspecified Qualified Code(s): N17.9 - Acute kidney failure, unspecified (4) Cirrhosis Current Visit: Yes Status: Chronic Assessment and plan: Compensated No varices on EGD No ascites Does have bilateral pleural effusions Continue to monitor Continuing Lasix 40mg IV Qualifiers: Hepatic cirrhosis type: alcoholic cirrhosis Ascites presence: unspecified Qualified Code(s): K70.30 - Alcoholic cirrhosis of liver without ascites (5) Opiate addiction Current Visit: Yes Status: Chronic Qualifiers: Substance use status: in remission Qualified Code(s): F11.21 - Opioid dependence, in remission (6) Bacteremia due to Gram-positive bacteria Current Visit: Yes Status: Acute (7) CHF (congestive heart failure) Current Visit: Yes Status: Chronic Qualifiers: Heart failure type: diastolic Heart failure chronicity: chronic Qualified Code(s): I50.32 - Chronic diastolic (congestive) heart failure (8) Hyponatremia Current Visit: Yes Status: Acute Assessment and plan: Resolved, monitoring (9) DVT prophylaxis Current Visit: Yes Status: Acute Assessment and plan: Heparin SQ. (10) Acute respiratory failure with hypoxia Current Visit: Yes Status: Acute Assessment and plan: Secondary to multifocal pneumonia and fluid overload. BIPAP as needed Judicious diuresis with 40 mg IV Lasix daily. Daily BMP monitoring. Continue O2 supplement, wean as tolerated. Continuing Levaquin - Time Spent With Patient Total time spent is greater than 50% in coordination of care (as documented) at patient's floor/unit and/or counseling patient: - Subjective Interval history: Continues to require 5L NC; no acute events overnight, denies fever, hemoptysis , tachycardia, or chest pain. - Constitutional Vitals: Temp Pulse Resp BP Pulse Ox 98.1 F 87 18 138/84 88 12/18/17 15:09 12/18/17 15:09 12/18/17 15:09 12/18/17 15:09 12/18/17 15:09 General appearance: Present: cooperative, A&O X 3, pleasant, no acute distress, answers questions appropriately - Head Head exam: Present: atraumatic, normal inspection - Eye Eye exam: Present: EOMI. Absent: conjunctival injection - ENT ENT exam: Present: mucous membranes moist - Neck Neck exam general surgery: Present: full ROM. Absent: lymphadenopathy - Respiratory Respiratory exam: Present: decreased breath sounds. Absent: accessory muscle use - Cardiovascular Cardiovascular exam: Present: RRR, +S1, +S2. Absent: systolic murmur, tachycardia - GI/Abdominal GI/Abdominal exam: Absent: distended, firm, guarding - Extremities Exam Extremities exam: Present: pedal edema (+1 edema), warm. Absent: calf tenderness - Neurological Exam Neurological exam: Absent: facial droop, speech deficit - Psychiatric Psychiatric exam: Present: normal affect, normal mood - Skin Skin exam: Absent: cyanosis, diaphoretic Internal Medicine: Result - Labs CBC & Chem 7: 12/18/17 04:08 12/18/17 04:08 Labs: Short CBC 12/18/17 Range/Units 04:08 WBC 14.2 H (4.3-11.1) K/mcL Hgb 9.7 L (11.5-15.4) g/dL Hct 26.5 L (35.3-44.9) % Plt Count 297 (140-400) K/mcL Neutrophils # 12.0 H (1.6-8.9) K/mcL BMP 12/18/17 04:08 Sodium 136 Potassium 3.5 Chloride 94 L Carbon Dioxide 37 H BUN 22 H Creatinine 0.39 L Glucose 81 Calcium 8.5 L - ABG Interpretation ABG results: ABG ABG pH 7.38 pH Units (7.32-7.45) 12/14/17 12:02 ABG pCO2 48 mmHg (35-45) H 12/14/17 12:02 ABG pO2 74 mmHg (85-104) L 12/14/17 12:02 ABG O2 Saturation 94 % (95-98) L 12/14/17 12:02 PT/INR, D-dimer PT 15.1 Seconds (9.4-12.1) H 12/13/17 01:07 - Impressions Impressions Chest CTA 12/18/17 12:57 IMPRESSION: 1. No evidence for acute pulmonary embolism. 2. Diffuse ground-glass attenuation of the lungs sparing a few areas as described above. There is underlying interlobular septal thickening noted along with posterior basal right lower lobe consolidation. There is accompanying moderate right and trace left pleural effusion. Differential considerations include infection which could be bacterial or non bacterial, pulmonary edema, pulmonary hemorrhage or hypersensitivity pneumonitis. Please correlate clinically. Infection most favored. D/ / Aleks Loredo MD / Aleks Loredo MD Interpreting Provider: Aleks Loredo MD Consult Discharge Plan - Plan Referrals: Junie Petersen, KERON [Primary Care Provider] - 12/23/17 9:30 am <Jacques Benitez - Last Filed: 12/18/17 17:24> Date of Encounter: 12/18/17 - Assessment and plan (1) Pneumonia Current Visit: Yes Status: Acute Qualifiers: Pneumonia type: due to group B Streptococcus Laterality: bilateral Lung location: unspecified part of lung Qualified Code(s): J15.3 - Pneumonia due to streptococcus, group B (2) Sepsis Current Visit: Yes Status: Acute Qualifiers: Sepsis type: sepsis due to unspecified organism Qualified Code(s): A41.9 - Sepsis, unspecified organism (3) Acute kidney failure Current Visit: Yes Status: Resolved Qualifiers: Acute renal failure type: unspecified Qualified Code(s): N17.9 - Acute kidney failure, unspecified (4) Cirrhosis Current Visit: Yes Status: Chronic Qualifiers: Hepatic cirrhosis type: alcoholic cirrhosis Ascites presence: unspecified Qualified Code(s): K70.30 - Alcoholic cirrhosis of liver without ascites (5) DVT prophylaxis Current Visit: Yes Status: Acute (6) Opiate addiction Current Visit: Yes Status: Chronic Qualifiers: Substance use status: in remission Qualified Code(s): F11.21 - Opioid dependence, in remission (7) Bacteremia due to Gram-positive bacteria Current Visit: Yes Status: Acute (8) CHF (congestive heart failure) Current Visit: Yes Status: Chronic Qualifiers: Heart failure type: diastolic Heart failure chronicity: chronic Qualified Code(s): I50.32 - Chronic diastolic (congestive) heart failure (9) Hyponatremia Current Visit: Yes Status: Acute (10) Acute respiratory failure with hypoxia Current Visit: Yes Status: Acute - Time Spent With Patient Total time spent is greater than 50% in coordination of care (as documented) at patient's floor/unit and/or counseling patient: - Constitutional Vitals: Temp Pulse Resp BP Pulse Ox 98.1 F 87 18 138/84 97 12/18/17 15:09 12/18/17 15:09 12/18/17 15:44 12/18/17 15:09 12/18/17 15:44 Internal Medicine: Result - Labs CBC & Chem 7: 12/18/17 04:08 12/18/17 04:08 Labs: Short CBC 12/18/17 Range/Units 04:08 WBC 14.2 H (4.3-11.1) K/mcL Hgb 9.7 L (11.5-15.4) g/dL Hct 26.5 L (35.3-44.9) % Plt Count 297 (140-400) K/mcL Neutrophils # 12.0 H (1.6-8.9) K/mcL BMP 12/18/17 04:08 Sodium 136 Potassium 3.5 Chloride 94 L Carbon Dioxide 37 H BUN 22 H Creatinine 0.39 L Glucose 81 Calcium 8.5 L - ABG Interpretation ABG results: ABG ABG pH 7.38 pH Units (7.32-7.45) 12/14/17 12:02 ABG pCO2 48 mmHg (35-45) H 12/14/17 12:02 ABG pO2 74 mmHg (85-104) L 12/14/17 12:02 ABG O2 Saturation 94 % (95-98) L 12/14/17 12:02 PT/INR, D-dimer PT 15.1 Seconds (9.4-12.1) H 12/13/17 01:07 - Impressions Impressions Chest CTA 12/18/17 12:57 IMPRESSION: 1. No evidence for acute pulmonary embolism. 2. Diffuse ground-glass attenuation of the lungs sparing a few areas as described above. There is underlying interlobular septal thickening noted along with posterior basal right lower lobe consolidation. There is accompanying moderate right and trace left pleural effusion. Differential considerations include infection which could be bacterial or non bacterial, pulmonary edema, pulmonary hemorrhage or hypersensitivity pneumonitis. Please correlate clinically. Infection most favored. D/ / Aleks Loredo MD / Aleks Loredo MD Interpreting Provider: Aleks Loredo MD - Attending Attestation I examined this patient and my medical decision-making was reviewed with the Resident Physician. I agree with the documented findings, disposition and treatment plan as described except to the extent set forth below.
[2017-12-18] MEDS: (Buprenorphine Hcl/Naloxone Hcl [Buprenorphin-Naloxon) PO SCH (17:50)
[2017-12-18] MEDS: traZODone 50 MG TABLET PO SCH (20:51)
[2017-12-19 03:32] LABS: Eosinophils % 0.3 %; Hematocrit 26.3 % (35.3-44.9); Hemoglobin 9.2 g/dL (11.5-15.4); Immature Granulocytes % 1.9 % (0-4); Lymphocytes # 1.1 K/mcL (0.6-4.6); Lymphocytes % 9.4 %; Mean Corpuscular Hemoglobin 34.5 pg (28.0-33.3); Mean Corpuscular Volume 98.5 fL (83.0-100.0); Mean Platelet Volume 10.1 fL (9.4-12.4); Monocytes # 0.4 K/mcL (0.0-1.3); Monocytes % 3.6 %; Neutrophils # 10.2 K/mcL (1.6-8.9); Platelet Count 447 K/mcL (140-400); Red Blood Count 2.67 M/mcL (3.82-4.97); Red Cell Distribution Width 16.8 % (11.5-14.5); Segmented Neutrophils % 84.8 %
[2017-12-19] MEDS: Ipratropium/Albuterol Neb 3 ML IH SCH ×6 (04:01→23:12)
[2017-12-19 04:05] LABS: BUN/Creatinine Ratio 46 (6-26); Blood Urea Nitrogen 21 mg/dL (6-20); Calcium 8.3 mg/dL (8.6-10.3); Carbon Dioxide 43 mEq/L (23-29); Chloride 92 mEq/L (98-107); Glucose 102 mg/dL (70-105); Osmolality,Calculated 287 (280-300); Potassium 3.5 mEq/L (3.5-5.1); Sodium 137 mEq/L (136-145); eGFR For African Americans > 60 (> 60); eGFR For Non-African Americans > 60 (> 60)
[2017-12-19] MEDS: *HR* Heparin 5,000 UNIT/ML VIAL SQ SCH ×2 (06:24→16:43)
[2017-12-19] MEDS: Levofloxacin 750 MG/150 ML 750 MG/150 ML BAG IVPB SCH (09:05)
[2017-12-19] MEDS: Furosemide 40 MG/4 ML VIAL IVP SCH ×2 (09:06→16:44)
[2017-12-19] MEDS: Folic Acid 1 MG TABLET PO SCH (09:06)
[2017-12-19] MEDS: Thiamine (B-1) 100 MG TABLET PO SCH (09:06)
[2017-12-19] MEDS: Vitamin B Complex/Vit C/Vit E 1 EACH TABLET PO SCH (09:06)
[2017-12-19] MEDS: predniSONE 20 MG TABLET PO SCH (09:06)
[2017-12-19] MEDS ORDERED: predniSONE 20 MG TABLET PO SCH (12:35)
--- NOTE | 2017-12-19 12:46 | Internal Med Progress Note ---
Date of Encounter: 12/19/17 Time of Encounter: 12:44 - Assessment and plan (1) Acute respiratory failure with hypoxia Current Visit: Yes Status: Acute Assessment and plan: Secondary to multifocal pneumonia and fluid overload. BIPAP as needed Lasix 40 mg IV BID. Daily BMP monitoring. Continue O2 supplement, wean as tolerated. Continuing Levaquin Bipap qualification test May need discharged with home O2. (2) Pneumonia Current Visit: Yes Status: Acute Assessment and plan: Continues to require 5L via nasal cannula, desaturates with mobility; ordering CTA 12/18 to assess for PE or possible empyema. Continue O2 supplement Wean O2 as tolerated Urine legionella negative Rechecking Procalcitonin, initial 5.58 Continue Levaquin - Based on sensitivity results (Rocephin was discontinued) Qualifiers: Pneumonia type: due to group B Streptococcus Laterality: bilateral Lung location: unspecified part of lung Qualified Code(s): J15.3 - Pneumonia due to streptococcus, group B (3) Sepsis Current Visit: Yes Status: Acute Assessment and plan: Leukocytosis improved, NSR, afebrile Blood culture 12/13 with strep pneumonia. Levaquin started based on sensitivities. Blood culture 12/14 done, no growth to date. Lactate is normal, Hemodynamically stable Resolved Qualifiers: Sepsis type: sepsis due to unspecified organism Qualified Code(s): A41.9 - Sepsis, unspecified organism (4) Acute kidney failure Current Visit: Yes Status: Resolved Assessment and plan: Resolved Qualifiers: Acute renal failure type: unspecified Qualified Code(s): N17.9 - Acute kidney failure, unspecified (5) Cirrhosis Current Visit: Yes Status: Chronic Assessment and plan: Compensated No varices on EGD No ascites Does have bilateral pleural effusions seen on imaging Continuing Lasix 40mg IV BID Qualifiers: Hepatic cirrhosis type: alcoholic cirrhosis Ascites presence: unspecified Qualified Code(s): K70.30 - Alcoholic cirrhosis of liver without ascites (6) DVT prophylaxis Current Visit: Yes Status: Acute Assessment and plan: Heparin SQ. (7) Opiate addiction Current Visit: Yes Status: Chronic Assessment and plan: Resume home dose of suboxone Qualifiers: Substance use status: in remission Qualified Code(s): F11.21 - Opioid dependence, in remission (8) Bacteremia due to Gram-positive bacteria Current Visit: Yes Status: Acute Assessment and plan: Per [facility], blood culture with GPC (likely strep), as seen on imaging. Repeat blood culture from here i with strep Pneumo - Changed to Levaquin today because of sensitivities - Repeat blood cultures done 12/14 currently no growth to date (9) CHF (congestive heart failure) Current Visit: Yes Status: Chronic Assessment and plan: hx of chronic CHFpEF. mild LVDD ECHO from 2017 noted Has trace pedal edema , she also has a hx of cirrhosis CXR shows pulm edema Monitor I/Os Bipap for fluid overload as well. Increased Lasix to 40 mg IV BID Qualifiers: Heart failure type: diastolic Heart failure chronicity: chronic Qualified Code(s): I50.32 - Chronic diastolic (congestive) heart failure (10) Hyponatremia Current Visit: Yes Status: Acute Assessment and plan: Resolved, monitoring - Time Spent With Patient Total time spent is greater than 50% in coordination of care (as documented) at patient's floor/unit and/or counseling patient: - Subjective Interval history: No complaints, no acute events. 12/19: Did not need bipap as much today, states she feels same as yesterday however. - Constitutional Vitals: Temp Pulse Resp BP Pulse Ox 97.9 F 91 20 126/73 90 12/19/17 11:39 12/19/17 11:39 12/19/17 11:39 12/19/17 11:39 12/19/17 11:39 General appearance: Present: cooperative, A&O X 3, pleasant, no acute distress, answers questions appropriately Exam: - Head Head exam: Present: atraumatic, normal inspection - Eye Eye exam: Present: EOMI. Absent: conjunctival injection - ENT ENT exam: Present: mucous membranes moist - Neck Neck exam general surgery: Present: full ROM. Absent: lymphadenopathy - Respiratory Respiratory exam: Present: decreased breath sounds. Absent: accessory muscle use - Cardiovascular Cardiovascular exam: Present: RRR, +S1, +S2. Absent: systolic murmur, tachycardia - GI/Abdominal GI/Abdominal exam: Absent: distended, firm, guarding - Extremities Exam Extremities exam: Present: pedal edema (+1 edema), warm. Absent: calf tenderness - Neurological Exam Neurological exam: Absent: facial droop, speech deficit - Psychiatric Psychiatric exam: Present: normal affect, normal mood - Skin Skin exam: Absent: cyanosis, diaphoretic Internal Medicine: Result - Labs CBC & Chem 7: 12/19/17 03:04 12/19/17 03:04 Labs: Short CBC 12/19/17 Range/Units 03:04 WBC 12.1 H (4.3-11.1) K/mcL Hgb 9.2 L (11.5-15.4) g/dL Hct 26.3 L (35.3-44.9) % Plt Count 447 H D (140-400) K/mcL Neutrophils # 10.2 H (1.6-8.9) K/mcL BMP 12/19/17 03:04 Sodium 137 Potassium 3.5 Chloride 92 L Carbon Dioxide 43 H* BUN 21 H Creatinine 0.46 L Glucose 102 Calcium 8.3 L - ABG Interpretation ABG results: ABG ABG pH 7.38 pH Units (7.32-7.45) 12/14/17 12:02 ABG pCO2 48 mmHg (35-45) H 12/14/17 12:02 ABG pO2 74 mmHg (85-104) L 12/14/17 12:02 ABG O2 Saturation 94 % (95-98) L 12/14/17 12:02 PT/INR, D-dimer PT 15.1 Seconds (9.4-12.1) H 12/13/17 01:07 - Impressions Impressions Chest CTA 12/18/17 12:57 IMPRESSION: 1. No evidence for acute pulmonary embolism. 2. Diffuse ground-glass attenuation of the lungs sparing a few areas as described above. There is underlying interlobular septal thickening noted along with posterior basal right lower lobe consolidation. There is accompanying moderate right and trace left pleural effusion. Differential considerations include infection which could be bacterial or non bacterial, pulmonary edema, pulmonary hemorrhage or hypersensitivity pneumonitis. Please correlate clinically. Infection most favored. D/ / Aleks Loredo MD / Aleks Loredo MD Interpreting Provider: Aleks Loredo MD - VTE Documentation of Mechanical Device: Intermittent pneumatic compression device Consult Discharge Plan - Plan Referrals: Junie Petersen, KERON [Primary Care Provider] - 12/23/17 9:30 am
[2017-12-19] MEDS: (Buprenorphine Hcl/Naloxone Hcl [Buprenorphin-Naloxon) PO SCH (16:43)
[2017-12-19] MEDS: traZODone 50 MG TABLET PO SCH (21:48)
[2017-12-20] MEDS: Ipratropium/Albuterol Neb 3 ML IH SCH ×3 (03:21→11:08)
[2017-12-20 04:44] LABS: Basophils % 0.1 %; Eosinophils # 0.1 K/mcL (0.0-0.6); Eosinophils % 0.5 %; Hematocrit 26.9 % (35.3-44.9); Hemoglobin 9.7 g/dL (11.5-15.4); Immature Granulocytes % 1.1 % (0-4); Lymphocytes # 1.7 K/mcL (0.6-4.6); Lymphocytes % 16.2 %; Mean Corpuscular HGB Conc 36.1 g/dL (31.6-35.5); Mean Corpuscular Hemoglobin 35.8 pg (28.0-33.3); Mean Corpuscular Volume 99.3 fL (83.0-100.0); Mean Platelet Volume 10.5 fL (9.4-12.4); Monocytes # 0.6 K/mcL (0.0-1.3); Monocytes % 5.8 %; Platelet Count 516 K/mcL (140-400); Red Blood Count 2.71 M/mcL (3.82-4.97); Red Cell Distribution Width 17.5 % (11.5-14.5); Segmented Neutrophils % 76.3 %
[2017-12-20 05:09] LABS: BUN/Creatinine Ratio 39 (6-26); Blood Urea Nitrogen 20 mg/dL (6-20); Calcium 8.4 mg/dL (8.6-10.3); Carbon Dioxide 41 mEq/L (23-29); Chloride 90 mEq/L (98-107); Glucose 82 mg/dL (70-105); Osmolality,Calculated 282 (280-300); Potassium 3.7 mEq/L (3.5-5.1); Sodium 135 mEq/L (136-145); eGFR For African Americans > 60 (> 60); eGFR For Non-African Americans > 60 (> 60)
[2017-12-20] MEDS: *HR* Heparin 5,000 UNIT/ML VIAL SQ SCH (06:19)
[2017-12-20 07:58] VITALS: BP 114/65
[2017-12-20] MEDS: Furosemide 40 MG/4 ML VIAL IVP SCH (08:49)
[2017-12-20] MEDS: Thiamine (B-1) 100 MG TABLET PO SCH (08:49)
[2017-12-20] MEDS: Vitamin B Complex/Vit C/Vit E 1 EACH TABLET PO SCH (08:50)
[2017-12-20] MEDS: Levofloxacin 750 MG/150 ML 750 MG/150 ML BAG IVPB SCH (08:50)
[2017-12-20] MEDS: Folic Acid 1 MG TABLET PO SCH (08:50)
--- NOTE | 2017-12-20 12:10 | Discharge Summary ---
- NOTES TO OUTPATIENT PROVIDER Notes to Outpatient Provider: - Follow-up BMP in 3 days. - Follow-up Oxygen status. Orders not resulted at time of discharge: Pending orders 12/13/17 06:00 ECG 12 lead ECG [ECG] AM 0600 12/15/17 13:19 Culture,Blood [BC] Routine 12/18/17 16:26 Procalcitonin Routine 12/21/17 04:00 BMP [Basic Metabolic Panel] AM 0400 Complete Blood Count [HEME] AM 0400 12/22/17 04:00 BMP [Basic Metabolic Panel] AM 0400 Complete Blood Count [HEME] AM 0400 12/23/17 04:00 BMP [Basic Metabolic Panel] AM 0400 Complete Blood Count [HEME] AM 0400 Date of Encounter: 12/20/17 Time of Encounter: 12:09 - Discharge Diagnosis (1) Acute respiratory failure with hypoxia Priority: Primary Status: Acute (2) Pneumonia Priority: Secondary Status: Acute Qualifiers: Pneumonia type: due to group B Streptococcus Laterality: bilateral Lung location: unspecified part of lung Qualified Code(s): J15.3 - Pneumonia due to streptococcus, group B (3) Sepsis Priority: Secondary Status: Acute Qualifiers: Sepsis type: sepsis due to unspecified organism Qualified Code(s): A41.9 - Sepsis, unspecified organism (4) Acute kidney failure Priority: Secondary Status: Resolved Qualifiers: Acute renal failure type: unspecified Qualified Code(s): N17.9 - Acute kidney failure, unspecified (5) Cirrhosis Priority: Secondary Status: Chronic Qualifiers: Hepatic cirrhosis type: alcoholic cirrhosis Ascites presence: unspecified Qualified Code(s): K70.30 - Alcoholic cirrhosis of liver without ascites (6) DVT prophylaxis Priority: Secondary Status: Acute (7) Opiate addiction Priority: Secondary Status: Chronic Qualifiers: Substance use status: in remission Qualified Code(s): F11.21 - Opioid dependence, in remission (8) Bacteremia due to Gram-positive bacteria Priority: Secondary Status: Acute (9) CHF (congestive heart failure) Priority: Secondary Status: Chronic Qualifiers: Heart failure type: diastolic Heart failure chronicity: chronic Qualified Code(s): I50.32 - Chronic diastolic (congestive) heart failure (10) Hyponatremia Priority: Secondary Status: Acute Hospital course: Ms. Antoine is a 57 year old female with history of liver cirrhosis, heart failure, hypertension, COPD, and tobacco abuse presented as a transfer from [facility] in [place]. She was brought in for hypoxia, dyspnea, coughing. She had evidence of pneumonia over there with sepsis and acute respiratory failure. Labs at [place] showed sodium low at 125, and WBC elevated at 22k, with 93% segmented neutrophils. CT of chest had moderate to large right pleural effusions with patchy infiltrates. She was transferred to [facility] by request. On arrival to [place] she had blood cultures drawn and was started on Rocephin and Azithromycin. Patient was fluid overloaded and required IV Lasix. Blood cultures came back positive for S pneumonia that was resistant to Rocephin and she was then changed to Levaquin. Patient was weaned to 2 L and qualified for oxygen. She also qualified for bipap. Repeat blood cultures were negative. Patient was no longer septic. She is hemodynamically stable on discharge. She is pending set up for BIPAP and oxygen at home. - Time Spent with Patient Total time spent providing and/or coordinating discharge services: - Discharge Medications Prescriptions: Folic Acid 1 mg PO DAILY #30 tablet Thiamine (B-1) [Vitamin B-1] 100 mg PO DAILY #30 tablet Vitamin B Complex/Vit C/Vit E [Stresstab] 1 each PO DAILY #30 tablet Home Medications: Ipratropium/Albuterol Neb [Duoneb] 3 ml IH Q6HR PRN 06/06/16 [History] Loratadine [Claritin] 10 mg PO DAILY PRN 06/06/16 [History] Albuterol Sulfate [Ventolin Hfa] 2 puff IH Q4H PRN 02/16/17 [History] Ergocalciferol (VITAMIN D2) [Vitamin D2] 50,000 unit PO QWEEK 02/16/17 [History] Trazodone HCl 100 mg PO HS 02/16/17 [History] Buprenorphine HCl/Naloxone HCl [Buprenorphin-Naloxon 8-2 mg Sl] 1 tab PO DAILY 12/12/17 [History] Fluticasone Propionate Nasal [Flonase] 50 mcg NS DAILY PRN 12/12/17 [History] Bumetanide 2 mg PO DAILY 12/13/17 [History] Paroxetine HCl [Paxil] 20 mg PO DAILY 12/13/17 [History] Folic Acid 1 mg PO DAILY #30 tablet 12/20/17 [Rx] Levofloxacin [Levaquin] 750 mg PO DAILY #5 tablet 12/20/17 [Rx] Thiamine (B-1) [Vitamin B-1] 100 mg PO DAILY #30 tablet 12/20/17 [Rx] Vitamin B Complex/Vit C/Vit E [Stresstab] 1 each PO DAILY #30 tablet 12/20/17 [ Rx] predniSONE [PredniSONE] 10 mg PO DAILY #9 tablet 12/20/17 [Rx] Allergies/Adverse Reactions: 3 Allergy/AdvReac Type Severity Reaction Status Date / Time No Known Allergies Allergy Verified 06/06/16 11:48 Date of admission: 12/12/17 21:24 Primary care physician: Junie Petersen CNP Consults: 12/15/17 12:01 Consult to Occupational Therapy [CONS] Routine Comment: Evaluate, develop and implement POC Reason for Consult: Weakness, not able to get around well at home per pt. Does patient have active BEDREST order?: No Is patient medically & hemodynamically stable?: Yes Consult to Physical Therapy [CONS] Routine Comment: Evaluate, develop and implement POC Reason for Consult: Weakness, not able to get around well at home, poss need for shower chair, etc per pt. Does patient have active BEDREST order?: No Is patient medically & hemodynamically stable?: Yes Consult to Sales Financial Analyst [CONS] Routine Reason for SW Consult: IV drug abuse, possible home needs, needs new home breathing treatment machine, poss home O2 on d/c. Currently uses dad's old O2 machines and has no supplies. Discharging clinician: Jacques Benitez - Constitutional Vitals: Temp Pulse Resp BP Pulse Ox 97.7 F 87 18 114/65 92 12/20/17 07:57 12/20/17 07:57 12/20/17 07:57 12/20/17 07:57 12/20/17 07:57 General appearance: Present: cooperative, A&O X 3, pleasant, no acute distress, answers questions appropriately Exam: Resp: decreased breath sounds at bases, fine rales throughout. No wheezing CVS: RRR, no mrg Ext: no edema - Patient Status Disposition: Home, Self-Care Condition: Undetermined Functional capacity at discharge: independent ambulation Overall status at discharge: patient is progressing back to baseline - Discharge Instructions Follow Up With: Junie Petersen, UNINDENTURED APPRENTICE [Primary Care Provider] - 12/23/17 9:30 am - Diet and Activity Activity: increase activity as tolerated Diet: advance to your usual diet, low fat, low cholesterol, low salt diet - VTE Documentation of Mechanical Device: Intermittent pneumatic compression device
[2017-12-21] MEDS ORDERED: Furosemide 40 MG/4 ML VIAL IVP SCH (09:00)
== END 2017-12-20 15:14 | disposition home or self-care (01) | DRG 871 ==
LOC: 2NENU → SUATTDRO 21:24
PROVIDERS: ADMIT Pediatrics; ATTEND Student in an Organized Health Care Education/Training Program

== ENCOUNTER 2019-10-04 10:18 | Inpatient (IN) ==
[2019-10-04 11:06] LABS: INR 0.9; Prothrombin Time 10.5 Seconds (9.4-12.1)
[2019-10-04 11:25] LABS: Alanine Aminotransferase 16 Units/L (7-52); Albumin 2.9 g/dL (3.5-5.7); Albumin/Globulin Ratio 0.8 (1.1-2.2); Alkaline Phosphatase 157 Units/L (34-104); Aspartate Amino Transferase 24 Units/L (13-39); BUN/Creatinine Ratio 33 (6-26); Bilirubin,Total 0.3 mg/dL (0.3-1.0); Blood Urea Nitrogen 12 mg/dL (8-23); Calcium 8.5 mg/dL (8.6-10.3); Carbon Dioxide 35 mEq/L (23-29); Chloride 93 mEq/L (98-107); Globulin 3.7 g/dL (2.4-3.5); Glucose 86 mg/dL (70-105); Osmolality,Calculated 273 (280-300); Potassium 4.4 mEq/L (3.5-5.1); Sodium 132 mEq/L (136-145); Total Protein 6.6 g/dL (6.4-8.9); Troponin I < 0.03 ng/mL (< 0.04); eGFR For African Americans > 60 (> 60); eGFR For Non-African Americans > 60 (> 60)
[2019-10-04 11:51] LABS: Bilirubin,Urine Negative (Negative); Blood,Urine Negative (Negative); Color,Urine Yellow (Yellow); Glucose,Urine (UA) Normal (Normal); Ketones,Urine Negative (Negative); Leukocyte Esterase,Urine Small (Negative); Nitrite,Urine Negative (Negative); Protein,Urine Negative (Neg-Trace); Specific Gravity,Urine 1.023 (1.010-1.025); Urobilinogen,Urine Normal (Normal)
[2019-10-04 11:54] LABS: Bacteria,Urine Few per hpf (None-Few); Hyaline Casts,Urine None Seen per lpf (None-Few); Squamous Epithelial Cell,Urine Many per lpf (None-Few)
[2019-10-04 11:55] LABS: Clarity,Urine Slightly Cloudy (Clear)
[2019-10-04 12:15] LABS: Basophils % 0.6 %; Eosinophils % 0.8 %; Hematocrit 40.4 % (35.3-44.9); Immature Granulocytes % 0.4 % (0-4); Lymphocytes # 0.3 K/mcL (0.6-4.6); Mean Corpuscular HGB Conc 32.2 g/dL (31.6-35.5); Mean Corpuscular Hemoglobin 37.5 pg (28.0-33.3); Mean Corpuscular Volume 116.4 fL (83.0-100.0); Mean Platelet Volume 9.3 fL (9.4-12.4); Monocytes # 0.5 K/mcL (0.0-1.3); Monocytes % 9.4 %; Neutrophils # 4.1 K/mcL (1.6-8.9); Platelet Count 255 K/mcL (140-400); Red Blood Count 3.47 M/mcL (3.82-4.97); Red Cell Distribution Width 14.7 % (11.5-14.5); Segmented Neutrophils % 82.8 %
[2019-10-04 12:17] LABS: Anisocytosis 1+ (Not Present); Macrocytosis Present (Not Present); Platelet Estimate Normal (Normal)
[2019-10-04 12:17] LABS: RBC,Urine 0-3 per hpf (0-3); Yeast,Urine Few per hpf (None Seen)
[2019-10-04] MEDS ORDERED: cefTRIAXone 1,000 MG in Water for inj. (sterile) 10 ML IVP ONE (12:45)
[2019-10-04] MEDS ORDERED: Ondansetron 4 MG/2 ML VIAL IVP PRN (14:22)
[2019-10-04] MEDS ORDERED: Naloxone 0.4 MG/ML INJ IVP PRN (14:22)
[2019-10-04] MEDS ORDERED: Fluticasone Propionate Nasal 50 MCG/SPRAY BOTTLE NS PRN (14:50)
[2019-10-04] MEDS ORDERED: Ipratropium/Albuterol Neb 3 ML IH PRN (14:50)
[2019-10-04] MEDS ORDERED: hydrALAZINE 10 MG TABLET PO PRN (14:57)
[2019-10-04 15:43] LABS: ABG Base Excess 15 mEq/L (-2 to 3); ABG HCO3 43 mEq/L (21-27); ABG Oxygen Saturation 97 % (95-98); ABG PCO2 71 mmHg (35-45); ABG PH 7.39 pH Units (7.32-7.45); ABG PO2 94 mmHg (85-104); ABG TCO2 45 mEq/L (20-26)
[2019-10-04] MEDS: Levalbuterol Neb 1.25 MG/3 ML IH SCH ×2 (16:05→21:50)
[2019-10-04] MEDS: Lactulose Oral Soln 20 GM/30 ML UDC PO SCH ×2 (16:36→20:57)
[2019-10-04] MEDS: Furosemide 40 MG/4 ML VIAL IVP SCH (16:36)
[2019-10-04] MEDS: Nicotine 21 MG PATCH.TD24 TD SCH (16:37)
[2019-10-04] MEDS: Azithromycin 500 MG in 0.9 % Sodium Chloride 250 ML IVPB SCH (16:38)
[2019-10-04] MEDS: *HR* Heparin 5,000 UNIT/ML VIAL SQ SCH (17:12)
[2019-10-04] MEDS: Budesonide/Formoterol 160/4.5 1 PUFF INH IH SCH (21:50)
[2019-10-05] MEDS: Levalbuterol Neb 1.25 MG/3 ML IH SCH ×4 (03:13→21:38)
[2019-10-05 04:44] LABS: BUN/Creatinine Ratio 26 (6-26); Blood Urea Nitrogen 9 mg/dL (8-23); Calcium 8.9 mg/dL (8.6-10.3); Carbon Dioxide 33 mEq/L (23-29); Chloride 90 mEq/L (98-107); Glucose 76 mg/dL (70-105); Magnesium 1.5 mg/dL (1.6-2.6); Osmolality,Calculated 271 (280-300); Phosphorous 3.3 mg/dL (2.7-4.5); Potassium 4.1 mEq/L (3.5-5.1); Sodium 132 mEq/L (136-145); eGFR For African Americans > 60 (> 60); eGFR For Non-African Americans > 60 (> 60)
[2019-10-05 05:54] LABS: Basophils % 0.3 %; Eosinophils % 0.1 %; Hematocrit 26.7 % (35.3-44.9); Hemoglobin 8.8 g/dL (11.5-15.4); Immature Granulocytes % 0.7 % (0-4); Lymphocytes # 0.5 K/mcL (0.6-4.6); Mean Corpuscular Hemoglobin 37.9 pg (28.0-33.3); Mean Corpuscular Volume 115.1 fL (83.0-100.0); Mean Platelet Volume 8.9 fL (9.4-12.4); Monocytes # 0.9 K/mcL (0.0-1.3); Monocytes % 12.5 %; Neutrophils # 5.8 K/mcL (1.6-8.9); Platelet Count 367 K/mcL (140-400); Red Blood Count 2.32 M/mcL (3.82-4.97); Red Cell Distribution Width 15.1 % (11.5-14.5); Segmented Neutrophils % 79.4 %; White Blood Count 7.3 K/mcL (4.3-11.1)
[2019-10-05] MEDS ORDERED: *HR* Metoprolol 5 MG/5 ML VIAL IVP ONE (06:47)
[2019-10-05] MEDS: *HR* Heparin 5,000 UNIT/ML VIAL SQ SCH ×2 (07:29→17:02)
[2019-10-05 08:46] LABS: Estimated Average Glucose 82 mg/dl
[2019-10-05] MEDS ORDERED: PARoxetine 20 MG TABLET PO SCH (09:00)
[2019-10-05] MEDS: Furosemide 40 MG/4 ML VIAL IVP SCH (09:12)
[2019-10-05] MEDS: cefTRIAXone 1,000 MG in Water for inj. (sterile) 10 ML IVP SCH (09:12)
[2019-10-05] MEDS: Nicotine 21 MG PATCH.TD24 TD SCH (09:13)
[2019-10-05] MEDS: Folic Acid 1 MG TABLET PO SCH (09:16)
[2019-10-05] MEDS: Budesonide/Formoterol 160/4.5 1 PUFF INH IH SCH ×2 (10:32→21:38)
[2019-10-05] MEDS: Lactulose Oral Soln 20 GM/30 ML UDC PO SCH ×3 (11:04→19:56)
[2019-10-05 11:10] LABS: Hematocrit 23.7 % (35.3-44.9); Hemoglobin 9.8 g/dL (11.5-15.4)
[2019-10-05] MEDS ORDERED: (Buprenorphine Hcl/Naloxone Hcl [Buprenorphin-Naloxon PO SCH (13:00)
[2019-10-05] MEDS: Azithromycin 500 MG in 0.9 % Sodium Chloride 250 ML IVPB SCH (14:12)
[2019-10-05] MEDS: Ketorolac 30 MG/ML VIAL IVP PRN (14:19)
[2019-10-05] MEDS: *HR* Buprenorphine HCl 8 MG TAB.SUBL SL SCH (19:57)
[2019-10-06 03:20] LABS: Basophils % 0.4 %; Eosinophils % 0.4 %; Hematocrit 24.3 % (35.3-44.9); Hemoglobin 8.8 g/dL (11.5-15.4); Immature Granulocytes % 0.2 % (0-4); Lymphocytes # 0.5 K/mcL (0.6-4.6); Lymphocytes % 11.3 %; Mean Corpuscular HGB Conc 36.2 g/dL (31.6-35.5); Mean Corpuscular Hemoglobin 43.3 pg (28.0-33.3); Mean Corpuscular Volume 119.7 fL (83.0-100.0); Mean Platelet Volume 9.2 fL (9.4-12.4); Monocytes # 0.7 K/mcL (0.0-1.3); Monocytes % 16.1 %; Neutrophils # 3.3 K/mcL (1.6-8.9); Platelet Count 394 K/mcL (140-400); Red Blood Count 2.03 M/mcL (3.82-4.97); Red Cell Distribution Width 14.9 % (11.5-14.5); Segmented Neutrophils % 71.6 %; White Blood Count 4.6 K/mcL (4.3-11.1)
[2019-10-06] MEDS: Levalbuterol Neb 1.25 MG/3 ML IH SCH ×4 (03:32→22:32)
[2019-10-06 03:47] LABS: BUN/Creatinine Ratio 24 (6-26); Blood Urea Nitrogen 13 mg/dL (8-23); Calcium 8.6 mg/dL (8.6-10.3); Carbon Dioxide 40 mEq/L (23-29); Chloride 89 mEq/L (98-107); Glucose 87 mg/dL (70-105); Osmolality,Calculated 279 (280-300); Potassium 3.9 mEq/L (3.5-5.1); Sodium 135 mEq/L (136-145); eGFR For African Americans > 60 (> 60); eGFR For Non-African Americans > 60 (> 60)
[2019-10-06 03:52] LABS: Anisocytosis 1+ (Not Present); Platelet Estimate Normal (Normal)
[2019-10-06] MEDS: *HR* Heparin 5,000 UNIT/ML VIAL SQ SCH ×2 (05:54→17:33)
[2019-10-06] MEDS: PARoxetine 20 MG TABLET PO SCH (08:10)
[2019-10-06] MEDS: *HR* Buprenorphine HCl 8 MG TAB.SUBL SL SCH ×2 (08:10→20:09)
[2019-10-06] MEDS: Folic Acid 1 MG TABLET PO SCH (08:10)
[2019-10-06] MEDS: Cholecalciferol (D-3) 1,000 UNIT (25MCG) TABLET PO SCH (08:11)
[2019-10-06] MEDS: Nicotine 21 MG PATCH.TD24 TD SCH (08:11)
[2019-10-06] MEDS: Lactulose Oral Soln 20 GM/30 ML UDC PO SCH ×3 (08:12→20:10)
[2019-10-06] MEDS: Furosemide 40 MG/4 ML VIAL IVP SCH (09:53)
[2019-10-06] MEDS: cefTRIAXone 1,000 MG in Water for inj. (sterile) 10 ML IVP SCH (09:53)
[2019-10-06] MEDS: Budesonide/Formoterol 160/4.5 1 PUFF INH IH SCH ×2 (10:14→22:32)
[2019-10-06] MEDS ORDERED: Psyllium 1 PACKET POWD.PACK PO ONE (14:26)
[2019-10-06] MEDS: Azithromycin 500 MG in 0.9 % Sodium Chloride 250 ML IVPB SCH (15:10)
[2019-10-06] MEDS: Ketorolac 30 MG/ML VIAL IVP PRN ×2 (17:41→23:00)
[2019-10-07 03:12] LABS: Basophils % 0.5 %; Eosinophils % 0.5 %; Hematocrit 22.7 % (35.3-44.9); Hemoglobin 8.3 g/dL (11.5-15.4); Immature Granulocytes % 0.3 % (0-4); Lymphocytes # 0.5 K/mcL (0.6-4.6); Lymphocytes % 11.9 %; Mean Corpuscular HGB Conc 36.6 g/dL (31.6-35.5); Mean Corpuscular Hemoglobin 44.1 pg (28.0-33.3); Mean Corpuscular Volume 120.7 fL (83.0-100.0); Mean Platelet Volume 9.2 fL (9.4-12.4); Monocytes # 0.7 K/mcL (0.0-1.3); Monocytes % 16.7 %; Neutrophils # 2.8 K/mcL (1.6-8.9); Platelet Count 388 K/mcL (140-400); Red Blood Count 1.88 M/mcL (3.82-4.97); Red Cell Distribution Width 15.3 % (11.5-14.5); Segmented Neutrophils % 70.1 %
[2019-10-07 03:29] LABS: BUN/Creatinine Ratio 18 (6-26); Blood Urea Nitrogen 16 mg/dL (8-23); Calcium 8.5 mg/dL (8.6-10.3); Carbon Dioxide 39 mEq/L (23-29); Chloride 94 mEq/L (98-107); Glucose 99 mg/dL (70-105); Osmolality,Calculated 281 (280-300); Sodium 135 mEq/L (136-145); eGFR For African Americans > 60 (> 60); eGFR For Non-African Americans > 60 (> 60)
[2019-10-07 03:39] LABS: Macrocytosis Present (Not Present); Platelet Estimate Normal (Normal)
[2019-10-07] MEDS: Levalbuterol Neb 1.25 MG/3 ML IH SCH (04:02)
[2019-10-07] MEDS: *HR* Heparin 5,000 UNIT/ML VIAL SQ SCH (05:17)
[2019-10-07 06:10] VITALS: BP 144/73
[2019-10-07] MEDS: Nicotine 21 MG PATCH.TD24 TD SCH (08:32)
[2019-10-07] MEDS: PARoxetine 20 MG TABLET PO SCH (08:33)
[2019-10-07] MEDS: Cholecalciferol (D-3) 1,000 UNIT (25MCG) TABLET PO SCH (08:33)
[2019-10-07] MEDS: *HR* Buprenorphine HCl 8 MG TAB.SUBL SL SCH (08:33)
[2019-10-07] MEDS: Lactulose Oral Soln 20 GM/30 ML UDC PO SCH (08:34)
[2019-10-07] MEDS: Folic Acid 1 MG TABLET PO SCH (08:34)
[2019-10-07] MEDS: Furosemide 40 MG/4 ML VIAL IVP SCH ×2 (08:36→08:49)
[2019-10-07] MEDS: cefTRIAXone 1,000 MG in Water for inj. (sterile) 10 ML IVP SCH (08:36)
== END 2019-10-07 10:31 | disposition home or self-care (01) ==
LOC: 3ANU 10:18 → EMEROOARM 10:18 → SUATTDRO 14:56 → 3ANU 15:45
PROVIDERS: ADMIT Internal Medicine; ATTEND Family Medicine